=== PATIENT | female | born 1990 | race Caucasian/White ===

== ENCOUNTER → 2020-07-15 11:46 | Outpatient (ROUT) | payer OTHER, SELFPAY ==
[2020-07-15 12:10] LABS: COVID19 -Nasal RAPID Negative (Negative)
== END ==
PROVIDERS: Visit Provider Physician Assistant
DX: Z11.59 Encounter for screening for other viral diseases (principal); E51.9 Thiamine deficiency, unspecified
CPT/HCPCS: 87635

== ENCOUNTER → 2020-07-31 09:31 | Outpatient (CLI) | payer OTHER, SELFPAY ==
[2020-07-31 10:07] LABS: Add Manual Diff / Slide Review NO; Basophils Absolute Auto 100 /uL (0-100); Basophils Percent Auto 0.6 % (0-2); Eosinophils Absolute Auto 400 /uL (0-450); Eosinophils Percent Auto 4.2 % (2-4); Hematocrit 41.7 % (36-46); Hemoglobin 14.3 g/dL (12.0-16.0); Lymphocytes Absolute Auto 3300 /uL (1100-4500); Lymphocytes Percent Auto 34.6 % (25-40); Mean Corpuscular HGB Conc 34.2 % (30-36); Mean Corpuscular Hemoglobin 29.6 PG (26-34); Mean Corpuscular Volume 86.4 fL (80-100); Monocytes Absolute Auto 800 /uL (0-900); Monocytes Percent Auto 8.3 % (3-14); Neutrophils Absolute Auto 4900 /uL (1500-7000); Neutrophils Percent Auto 52.3 % (50-75); Platelet Count 269 X10^3/uL (150-400); Red Blood Cell Count 4.83 X10^6/uL (4.0-5.2); Red Cell Distribution Width 13.2 % (11.6-14.8); White Blood Cell Count 9.4 X10^3/uL (4.5-11.0)
[2020-07-31 10:24] LABS: Alanine Aminotransferase 25 IU/L (<35); Albumin 4.4 g/dL (3.5-5.0); Albumin Globulin Ratio 1.5 (1.0-2.8); Alkaline Phosphatase 49 U/L (38-126); Aspartate Aminotransferase 27 IU/L (14-36); BUN Creatinine Ratio 15.9 (6-22); Bilirubin Total 0.4 mg/dL (0.2-1.3); Blood Urea Nitrogen 11 mg/dL (7-17); Calcium 9.2 mg/dL (8.4-10.2); Carbon Dioxide 27 mmol/L (22-32); Chloride 108 mmol/L (98-107); Cholesterol 243 mg/dL (140-199); Estimated Glomerular Filt Rate > 60.0 mL/min (>60); Glucose 106 mg/dL (70-100); HDL Cholesterol 40 mg/dL (40-60); HEMOLYSIS < 15 (0-50); LDL Cholesterol Calculated 179 mg/dL (<100); Potassium 3.9 mmol/L (3.4-5.1); Sodium 138 mmol/L (137-145); Total Protein 7.4 g/dL (6.3-8.2); Triglycerides 120 mg/dL (35-150)
== END ==
PROVIDERS: PCP Registered Nurse; Referring Provider Registered Nurse; Visit Provider Registered Nurse
DX: Z00.00 Encounter for general adult medical examination without abnormal findings (principal); Z82.49 Family history of ischemic heart disease and other diseases of the circulatory system
CPT/HCPCS: 36415; 80053; 80061; 85025

== ENCOUNTER → 2020-08-07 08:06 | Outpatient (CLI) | payer OTHER, SELFPAY ==
--- NOTE | 2020-08-07 08:08 | DI.US.S_ITS ---
PROCEDURE: US ABDOMEN COMPLETE INDICATIONS: HISTORY OF GALLBLADDER DISEASE TECHNIQUE: Real-time scanning was performed of the abdominal and retroperitoneal organs, with image documentation. COMPARISON: [facility], GYPSY, CT ABDOMEN/PELVIS WITH CONTRAST, 04/01/2009, 13:19. [facility], RG, US ABDOMEN LIMITED, 04/17/2019, 23:42. FINDINGS: Liver: The liver demonstrates mildly enlarged size. The liver demonstrates generalized moderately increased echogenicity. This decreases ultrasound sensitivity for detection of hepatic masses. Gallbladder: No findings of gallstones or sludge are seen. The gallbladder wall is not thickened, measuring 3 mm or less. No specific pericholecystic fluid is seen. The sonographic Fernández sign is negative. Biliary ducts: Intrahepatic bile ducts are non-dilated. Extrahepatic bile duct caliber measures 4 mm. Normal is 6-7 mm or less in diameter, or 10 mm or less post-cholecystectomy. Pancreas: Visualized portions of the pancreas are sonographically normal. Spleen: Spleen is normal in size and homogeneous in echotexture. Kidneys: Kidneys are normal in size and echotexture. Right kidney measures 10.9 cm long; left kidney measures 10.9 cm long. No hydronephrosis or nephrolithiasis. No solid masses. Aorta: Visualized aorta is normal in caliber at less than 3 cm. Iliacs: Proximal common iliac arteries are normal in caliber at less than 2.5 cm. IVC: Intrahepatic inferior vena cava is patent. Miscellaneous: No free abdominal fluid. IMPRESSION: The gallbladder demonstrates a normal sonographic appearance. No biliary dilatation is seen. Mildly enlarged, fatty liver. Dictated by: Familia Newby M.D. on 08/07/2020 at 10:56 Approved by: Familia Newby M.D. on 08/07/2020 at 10:57
== END ==
PROVIDERS: PCP Registered Nurse; Referring Provider Registered Nurse; Visit Provider Registered Nurse
DX: K76.0 Fatty (change of) liver, not elsewhere classified (principal); Z87.19 Personal history of other diseases of the digestive system
CPT/HCPCS: 76700

== ENCOUNTER → 2020-10-09 08:38 | Outpatient (CLI) | payer OTHER, SELFPAY ==
--- NOTE | 2020-10-09 08:39 | DI.US.S_ITS ---
LIMITED ULTRASOUND OF LEFT BREAST AND AXILLA: 10/09/2020 CLINICAL: Palpable left breast lump with pain. No prior exams were available for comparison. Color flow and real-time ultrasound of the left breast axilla were performed. Giles scale images of the real-time examination were reviewed. There is a 2.7 cm x 2.1 cm x 1.6 cm oval mass with a circumscribed and microlobulated margin in the left breast at 2 o'clock posterior depth 6 cm from the nipple. This oval mass is hypoechoic with a well-defined boundary. This correlates as palpated. Color flow imaging demonstrates that there is no vascularity present. No significant abnormalities were seen sonographically in the left axilla. IMPRESSION: PROBABLY BENIGN The 2.7 cm x 2.1 cm x 1.6 cm oval mass in the left breast resembles a fibroadenoma and is probably benign. A follow-up ultrasound in 6 months is recommended to demonstrate stability. Exam findings were conveyed to the patient. Patient is advised to monitor for significant change. This exam was interpreted at Station ID: [id number]. Electronically Signed By: Jose G Gould M.D. [facility] [place]/:10/09/2020 17:06:25 letter sent: Followup Recommended Ultrasound BI-RADS: 3 Probably benign
== END ==
PROVIDERS: PCP Registered Nurse; Referring Provider Registered Nurse; Visit Provider Registered Nurse
DX: N63.21 Unspecified lump in the left breast, upper outer quadrant (principal); N64.4 Mastodynia
CPT/HCPCS: 76642

== ENCOUNTER → 2020-10-21 14:15 | Outpatient (CLI) | payer OTHER, SELFPAY ==
[2020-10-21 16:22] LABS: Add Manual Diff / Slide Review NO; Basophils Absolute Auto 0 /uL (0-100); Basophils Percent Auto 0.4 % (0-2); Eosinophils Absolute Auto 400 /uL (0-450); Eosinophils Percent Auto 3.9 % (2-4); Hematocrit 39.7 % (36-46); Hemoglobin 13.7 g/dL (12.0-16.0); Lymphocytes Absolute Auto 3000 /uL (1100-4500); Lymphocytes Percent Auto 32.3 % (25-40); Mean Corpuscular HGB Conc 34.4 % (30-36); Mean Corpuscular Hemoglobin 29.7 PG (26-34); Mean Corpuscular Volume 86.3 fL (80-100); Monocytes Absolute Auto 800 /uL (0-900); Monocytes Percent Auto 8.3 % (3-14); Neutrophils Absolute Auto 5100 /uL (1500-7000); Neutrophils Percent Auto 55.1 % (50-75); Platelet Count 264 X10^3/uL (150-400); Red Cell Distribution Width 13.2 % (11.6-14.8); White Blood Cell Count 9.3 X10^3/uL (4.5-11.0)
[2020-10-21 16:54] LABS: Alanine Aminotransferase 64 IU/L (<35); Albumin 4.5 g/dL (3.5-5.0); Albumin Globulin Ratio 1.4 (1.0-2.8); Alkaline Phosphatase 50 U/L (38-126); Aspartate Aminotransferase 53 IU/L (14-36); BUN Creatinine Ratio 13.8 (6-22); Bilirubin Total 0.7 mg/dL (0.2-1.3); Bilirubin Unconjugated 0.6 mg/dL (0.0-1.1); Blood Urea Nitrogen 12 mg/dL (7-17); Calcium 9.3 mg/dL (8.4-10.2); Carbon Dioxide 29 mmol/L (22-32); Chloride 104 mmol/L (98-107); Estimated Glomerular Filt Rate > 60.0 mL/min (>60); Globulin 3.2 g/dL (1.7-4.1); Glucose 82 mg/dL (70-100); HEMOLYSIS < 15 (0-50); Lipase 133 U/L (23-300); Potassium 4.4 mmol/L (3.4-5.1); Sodium 138 mmol/L (137-145); Total Protein 7.7 g/dL (6.3-8.2)
[2020-10-21 18:04] LABS: TSH w/ Reflex to FT4 2.25 uIU/mL (0.47-4.68)
== END ==
PROVIDERS: PCP Registered Nurse; Referring Provider Nurse Practitioner Family; Visit Provider Nurse Practitioner Family
DX: R10.11 Right upper quadrant pain (principal)
CPT/HCPCS: 36415; 80053; 80076; 83690; 84443; 85025

== ENCOUNTER → 2020-10-23 07:11 | Outpatient (CLI) | payer OTHER, SELFPAY ==
--- NOTE | 2020-10-23 07:12 | DI.US.S_ITS ---
PROCEDURE: US ABDOMEN LIMITED INDICATIONS: RUQ PAIN TECHNIQUE: Real-time focused scanning was performed of the abdomen, with image documentation. COMPARISON: [facility], RG, US ABDOMEN LIMITED, 04/17/2019, 23:42. [facility], US, US ABDOMEN COMPLETE, 08/07/2020, 8:29. FINDINGS: The liver demonstrates prominent size. The liver demonstrates generalized mildly increased echogenicity. This decreases ultrasound sensitivity for detection of hepatic masses. No findings of gallstones or sludge are seen. The gallbladder wall is not thickened, measuring 3 mm or less. No specific pericholecystic fluid is seen. The sonographic Fernández sign is negative. There is no biliary dilatation, the common bile duct measures 5 mm. No significant pancreatic abnormality is seen on these images. IMPRESSION: The gallbladder demonstrates a normal sonographic appearance. No biliary dilatation is seen. Mild fatty liver infiltration seen. Dictated by: Familia Newby M.D. on 10/23/2020 at 9:14 Approved by: Familia Newby M.D. on 10/23/2020 at 9:15
== END ==
PROVIDERS: PCP Registered Nurse; Referring Provider Nurse Practitioner Family; Visit Provider Nurse Practitioner Family
DX: R10.11 Right upper quadrant pain (principal); K76.0 Fatty (change of) liver, not elsewhere classified
CPT/HCPCS: 76705

== ENCOUNTER 2020-11-16 06:59 | Emergency (ER) | payer OTHER, SELFPAY ==
[2020-11-16 07:07] VITALS: BP 134/64; PULSE 72; RESP 14; TEMP 36.3; O2SAT 100; BMI 30.7
--- NOTE | 2020-11-16 07:22 | DI.US.S_ITS ---
PROCEDURE: US ABDOMEN LIMITED INDICATIONS: RIGHT UPPER QUADRANT PAIN TECHNIQUE: Real-time focused scanning was performed of the abdomen, with image documentation. COMPARISON: [facility], US, US ABDOMEN LIMITED, 10/23/2020, 7:23. [facility], US, US ABDOMEN COMPLETE, 08/07/2020, 8:29. FINDINGS: The liver is normal in echotexture, and measures up to 20 cm craniocaudad. The gallbladder is normal in wall thickness, and shows no evidence of stones or inflammation. The common duct is normal in caliber at 5.7 mm. The pancreas is normal where well seen. IMPRESSION: Hepatic craniocaudad length is 20 cm, otherwise the limited right upper quadrant ultrasound appears normal. No sign of cholecystitis or biliary distension. Dictated by: Woody Kam M.D. on 11/16/2020 at 8:30 Approved by: Woody Kam M.D. on 11/16/2020 at 8:32
[2020-11-16] MEDS: ONDANSETRON 4 MG/2 ML INJ IV (07:27)
[2020-11-16] MEDS: KETOROLAC 60 MG/2 ML VIAL 30 MG IV (07:27)
[2020-11-16] MEDS: PANTOPRAZOLE 40 MG VIAL IV (07:27)
[2020-11-16] MEDS: SODIUM CHLORIDE 0.9% 1,000 ML 1000 ML IV (07:28)
--- NOTE | 2020-11-16 07:31 | ED.CHESTPAIN ---
HPI - Chest Pain General Chief Complaint: Chest Pain Stated Complaint: pain in mid to upper chest, nausea Time Seen by Provider: 11/16/20 07:07 Source: patient Mode of arrival: Ambulatory Limitations: no limitations History of Present Illness HPI narrative: Patient is a 29-year-old female with no past medical history presenting today with vomiting chest burning and some abdominal discomfort. She says that she threw up twice last night now has burning and history in her chest, and some mild abdominal pain. She says the pain comes and goes and is sharp and stabbing when it is present. She has previously had issues with her gallbladder but has not yet had surgery. She denies any fever chills no shortness of breath. Still feeling slightly nauseous. She denies any diarrhea. Related Data Previous Rx's Medication Instructions Recorded promethazine 25 mg PO Q6H PRN #10 tab 11/16/20 Allergies Allergy/AdvReac Type Severity Reaction Status Date / Time No Known Drug Allergies Allergy Verified 10/21/20 13:32 Review of Systems Review of Systems Narrative: GENERAL: Denies chills, fatigue, malaise, fever, sweats, travel HEENT: Denies sinus pain, ear pain, sore throat, difficulty swallowing, neck pain RESPIRATORY: Denies dyspnea, cough, wheezing, hemoptysis, sputum. CARDIOVASCULAR: Denies chest pain, palpitations, orthopnea, edema GASTROINTESTINAL: See HPI : Denies dysuria, frequency, incontinence, hematuria, urinary retention, flank pain. MUSCULOSKELETAL: Denies weakness, joint pain, or bony pain SKIN: No rash, no erythema, no pruritus NEUROLOGIC: Denies weakness, dizziness, headache, numbness, change in speech, confusion PSYCHIATRIC: No concerning psychosocial issues. 12 point review of systems is negative except for those stated above and HPI Patient History Medical History Eczema (~2011) No significant medical problems Right upper quadrant abdominal pain (09/2020) Surgical History Anesthesia History of tonsillectomy Family History Father History of quadruple bypass History of heart disease Hyperlipidemia Grandmother Diabetes mellitus Grandfather History of heart disease Social History Smoking Status: Former smoker Smoking Status: Former smoker alcohol intake frequency: 0-2 drinks per day Substance Use Type: marijuana Exam Initial Vital Signs Initial Vital Signs: Vital Signs Temperature 97.4 F L 11/16/20 07:07 Pulse Rate 72 11/16/20 07:07 Respiratory Rate 14 11/16/20 07:07 Blood Pressure 134/64 11/16/20 07:07 Pulse Oximetry 100 11/16/20 07:07 GENERAL: Well-appearing, well-nourished and in no acute distress. HEENT: Head atraumatic,EOMI, pupils reactive, face symmetric, moist mucous membranes CARDIOVASCULAR: Regular rate and rhythm without murmurs, rubs or gallops. RESPIRATORY: Breath sounds equal bilaterally, no wheezes rales or rhonchi. ABDOMEN: Soft, mild right upper quadrant pain no guarding or rebound EXTREMITIES: Normal range of motion, no clubbing or edema. Neurovascularly intact NEUROLOGICAL: Alert and oriented x4.Normal gait and speech. Cranial nerves II through XII grossly intact. SKIN: Warm, dry, no laceration, no petechiae, no rashes or lesions. Course Orders Ordered: ED Orders 11/16/20 07:10 Complete Blood Count AUTO DIFF Stat Comprehensive Metabolic Panel Stat Lipase Stat Troponin & CK Cardiac Panel Stat 11/16/20 07:22 US abdomen limited Stat 11/16/20 07:43 XR chest 1V Stat Discontinued Medications Sodium Chloride (Normal Saline 0.9%) 1,000 mls @ 1,000 mls/hr IV CONT DARSHANA Last Infusion: 11/16/20 08:45 Dose: 0 mls/hr Documented by: Admin: 11/16/20 07:28 Dose: 1,000 mls/hr Documented by: LESLIE Ketorolac Tromethamine (Ketorolac 60 Mg/2 Ml Vial) 30 mg IV NOW ONE Stop: 11/16/20 07:23 Last Admin: 11/16/20 07:27 Dose: 30 mg Documented by: LESLIE Ondansetron HCl (Ondansetron 4 Mg/2 Ml Inj) 4 mg IV NOW ONE Stop: 11/16/20 07:23 Last Admin: 11/16/20 07:27 Dose: 4 mg Documented by: LESLIE Pantoprazole Sodium (Pantoprazole 40 Mg Vial) 40 mg IV NOW ONE Stop: 11/16/20 07:23 Last Admin: 11/16/20 07:27 Dose: 40 mg Documented by: LESLIE Vital Signs Vital signs: Vital Signs - 8 hr 11/16/20 07:07 11/16/20 08:30 Temperature 97.4 F L Pulse Rate 72 69 Respiratory Rate 14 16 Blood Pressure 134/64 103/58 L Pulse Oximetry 100 97 MDM - Chest Pain Lab Data Attestation: I reviewed the patient's lab results. Result diagrams: 11/16/20 07:10 11/16/20 07:10 Labs: Lab Results 11/16/20 11/16/20 11/16/20 Range/Units 07:10 07:10 07:10 WBC 9.3 (4.5-11.0) X10^3/uL RBC 4.81 (4.0-5.2) X10^6/uL Hgb 14.5 (12.0-16.0) g/dL Hct 42.4 (36-46) % MCV 88.0 (80-100) fL MCH 30.1 (26-34) PG MCHC 34.2 (30-36) % RDW 12.8 (11.6-14.8) % Plt Count 269 (150-400) X10^3/uL Neut % (Auto) 42.6 L (50-75) % Lymph % (Auto) 42.0 H (25-40) % [place] % (Auto) 8.0 (3-14) % Eos % (Auto) 6.7 H (2-4) % Baso % (Auto) 0.7 (0-2) % Neut # (Auto) 4000 (7783-2910) /uL Lymph # (Auto) 3900 (1731-2179) /uL [place] # (Auto) 800 (0-900) /uL Eos # (Auto) 600 H (0-450) /uL Baso # (Auto) 100 (0-100) /uL Sodium 139 (137-145) mmol/L Potassium 4.7 (3.4-5.1) mmol/L Chloride 105 (98-107) mmol/L Carbon Dioxide 22 (22-32) mmol/L BUN 14 (7-17) mg/dL Creatinine 0.74 (0.52-1.04) mg/dL Estimated GFR > 60.0 (>60) mL/min BUN/Creatinine Ratio 18.9 (6-22) Glucose 93 (70-100) mg/dL Calcium 9.5 (8.4-10.2) mg/dL Total Bilirubin 1.0 (0.2-1.3) mg/dL AST 43 H (14-36) IU/L ALT 18 (<35) IU/L Alkaline Phosphatase 48 (38-126) U/L Total Creatine Kinase 77 (30-135) U/L CK-MB (CK-2) TNP CK-MB (CK-2) Rel Index TNP Troponin I 0.018 (0.01-0.034) ng/mL Total Protein 8.0 (6.3-8.2) g/dL Albumin 4.7 (3.5-5.0) g/dL Globulin 3.3 (1.7-4.1) g/dL Albumin/Globulin Ratio 1.4 (1.0-2.8) Lipase 179 (23-300) U/L Point of Care Testing Test Results Negative Urine Dip Bedside Urine Glucose Negative Bedside Urine Bilirubin - Negative Bedside Urine Ketone - Negative Urine Specific [place] 1.03 Bedside Urine Occult Blood - Negative Bedside Urine pH 6 Bedside Urine Protein - Negative Bedside Urine Urobilinogen - Negative Bedside Urine Nitrite - Negative Bedside Urine Leukocytes - Negative Esterase Imaging Data Chest x-ray: Radiologist's Impression: PROCEDURE: XR CHEST 1V INDICATIONS: chest pain TECHNIQUE: One view of the chest was acquired. COMPARISON: None. FINDINGS: Surgical changes and devices: None. Lungs and pleura: Lungs are clear. No pleural effusions or pneumothorax. Mediastinum: Mediastinal contours appear normal. Heart size is normal. Bones and chest wall: No suspicious bony lesions. Overlying soft tissues appear unremarkable. IMPRESSION: 1. No acute cardiopulmonary disease. Dictated by: Johnnie Jacobsen M.D. on 11/16/2020 at 8:08 US - abdomen: Radiologist's Impression: PROCEDURE: US ABDOMEN LIMITED INDICATIONS: RIGHT UPPER QUADRANT PAIN TECHNIQUE: Real-time focused scanning was performed of the abdomen, with image documentation. COMPARISON: Located [facility], , US ABDOMEN LIMITED, 10/23/2020, 7:23. Located [facility], , US ABDOMEN COMPLETE, 08/07/2020, 8:29. FINDINGS: The liver is normal in echotexture, and measures up to 20 cm craniocaudad. The gallbladder is normal in wall thickness, and shows no evidence of stones or inflammation. The common duct is normal in caliber at 5.7 mm. The pancreas is normal where well seen. IMPRESSION: Hepatic craniocaudad length is 20 cm, otherwise the limited right upper quadrant ultrasound appears normal. No sign of cholecystitis or biliary distension. Dictated by: Woody Kam M.D. on 11/16/2020 at 8:30 Approved by: Woody Kam M.D. on 11/16/2020 at 8:32 ECG Data Attestation: I personally reviewed and interpreted this ECG as follows: Prior ECG tracings: not available for review Interpretation: EKG 1. Normal sinus rhythm rate 48 interval 154 QRS [address] changes full to EKG 2. Sinus rhythm rate 50 p.r. interval [address] changes similar previous EKG MDM Narrative Medical decision making narrative: Patient is noted to be bradycardic as low as 43 the. She is given Zofran but EKG does not show significant QT prolongation however for will give her Phenergan. Ultrasound blood work her overall reassuring. No sign of acute cholecystitis. Discharge Plan Departure Patient Disposition: Home Clinical Impression: Gastroenteritis Instructions: DI for Viral Gastroenteritis -- Adult Activity Restrictions/Additional Instructions: 1) You have been diagnosed with gastroenteritis 2) What to do: Your blood work and ultrasound are overall reassuring no problem with gallbladder at this time. Drink frequent but small amounts of fluids. I recommend Gatorade or a Gatorade-like product, as it has small amounts of sugar and salts that improve fluid retention. 3) Take medications as directed--> SENT TO [facility] IN [place] Phenergan 25 mg every 6 hours if needed for nausea or vomiting this can cause drowsiness 4) Follow up with your primary care provider in 2-3 days 5) Return to ER if you should have any new or worsening symptoms such as, increasing pain, fever unable to hold down fluids despite use of anti-nausea medications and the small volume oral rehydration strategy. Prescriptions: New promethazine 25 mg tablet 25 mg PO Q6H PRN (Reason: nausea and vomiting) Qty: 10 RF: 0 Referrals: Tong Strong ARNP [Primary Care Provider] -
--- NOTE | 2020-11-16 07:43 | DI.RAD.S_ITS ---
PROCEDURE: XR CHEST 1V INDICATIONS: chest pain TECHNIQUE: One view of the chest was acquired. COMPARISON: None. FINDINGS: Surgical changes and devices: None. Lungs and pleura: Lungs are clear. No pleural effusions or pneumothorax. Mediastinum: Mediastinal contours appear normal. Heart size is normal. Bones and chest wall: No suspicious bony lesions. Overlying soft tissues appear unremarkable. IMPRESSION: 1. No acute cardiopulmonary disease. Dictated by: Johnnie Jacobsen M.D. on 11/16/2020 at 8:08 Approved by: Johnnie Jacobsen M.D. on 11/16/2020 at 8:11
[2020-11-16 07:49] LABS: Creatine Kinase 77 U/L (30-135)
[2020-11-16 07:51] LABS: Alanine Aminotransferase 18 IU/L (<35); Albumin 4.7 g/dL (3.5-5.0); Albumin Globulin Ratio 1.4 (1.0-2.8); Alkaline Phosphatase 48 U/L (38-126); Aspartate Aminotransferase 43 IU/L (14-36); BUN Creatinine Ratio 18.9 (6-22); Blood Urea Nitrogen 14 mg/dL (7-17); Calcium 9.5 mg/dL (8.4-10.2); Carbon Dioxide 22 mmol/L (22-32); Chloride 105 mmol/L (98-107); Estimated Glomerular Filt Rate > 60.0 mL/min (>60); Globulin 3.3 g/dL (1.7-4.1); Glucose 93 mg/dL (70-100); Lipase 179 U/L (23-300); Potassium 4.7 mmol/L (3.4-5.1); Sodium 139 mmol/L (137-145)
[2020-11-16 08:02] LABS: Troponin I 0.018 ng/mL (0.01-0.034)
[2020-11-16 08:14] LABS: Eosinophils Absolute Auto 600 /uL (0-450); Lymphocytes Absolute Auto 3900 /uL (1100-4500)
[2020-11-16 08:18] LABS: Add Manual Diff / Slide Review NO; Basophils Absolute Auto 100 /uL (0-100); Basophils Percent Auto 0.7 % (0-2); Eosinophils Percent Auto 6.7 % (2-4); Hematocrit 42.4 % (36-46); Hemoglobin 14.5 g/dL (12.0-16.0); Mean Corpuscular HGB Conc 34.2 % (30-36); Mean Corpuscular Hemoglobin 30.1 PG (26-34); Monocytes Absolute Auto 800 /uL (0-900); Neutrophils Absolute Auto 4000 /uL (1500-7000); Neutrophils Percent Auto 42.6 % (50-75); Platelet Count 269 X10^3/uL (150-400); Red Blood Cell Count 4.81 X10^6/uL (4.0-5.2); Red Cell Distribution Width 12.8 % (11.6-14.8); White Blood Cell Count 9.3 X10^3/uL (4.5-11.0)
[2020-11-16 08:30] VITALS: BP 103/58; PULSE 69; RESP 16; O2SAT 97
== END 2020-11-16 09:12 | disposition home or self-care (01) ==
PROVIDERS: Emergency Provider Emergency Medicine; PCP Registered Nurse
DX: K52.9 Noninfective gastroenteritis and colitis, unspecified (principal); R10.11 Right upper quadrant pain; R11.2 Nausea with vomiting, unspecified; R07.9 Chest pain, unspecified
CPT/HCPCS: 36415; 71045; 76705; 80053; 81003; 81025; 82550; 83690; 84484; 85025; 93005; 93010; 96361; 96374; 96375; 99284; C9113; J1885; J2405

== ENCOUNTER → 2020-12-22 15:40 | Outpatient (CLI) | payer OTHER, SELFPAY ==
[2020-12-22 17:16] LABS: COVID19 -Nasal RAPID Negative (Negative)
== END ==
PROVIDERS: PCP Registered Nurse; Visit Provider Physician Assistant
DX: R09.81 Nasal congestion (principal); Z20.822 Contact with and (suspected) exposure to COVID-19
CPT/HCPCS: 87635

== ENCOUNTER → 2021-03-12 08:14 | Outpatient (CLI) | payer OTHER, SELFPAY ==
--- NOTE | 2021-03-12 08:15 | DI.US.S_ITS ---
PROCEDURE: US PELVIC COMPLETE INDICATIONS: INFERTILITY TECHNIQUE: Real-time scanning was performed of the pelvic organs, with image documentation. Additional endovaginal scanning was necessary due to incomplete visualization of the adnexal and endometrial structures by transabdominal scanning. COMPARISON: None. FINDINGS: Uterus: The uterus measures 6.6 x 5.0 x 4.1 centimeters. The uterus is anteverted. Endometrial thickness is 11.7 millimeters. Multiple simple anechoic myometrial cysts are seen. The uterus may have a septate morphology, however this is not well defined with this ultrasound. Ovaries: The left ovary has a normal size and appearance measuring 2.9 x 1.7 x 1.7 centimeters with normal appearing follicles. The right ovary has a normal size measuring 4.0 x 2.5 x 2.8 centimeters The right ovary has an isoechoic focus with ring-like peripheral enhancement measuring 1.9 x 1.8 x 1.2 centimeters likely a corpus luteum cyst. Other: No pathologic free abdominal or pelvic fluid. IMPRESSION: 1. Simple anechoic myometrial cysts are seen or this could be fluid within the endometrial canal of a septate uterus. This is not well defined with this ultrasound however. 2. Please correlate with test. Small endometrial cysts could potentially be early gestational sacs. 3. Probable corpus luteum of the right ovary. Dictated by: Ulisses Marks M.D. on 03/12/2021 at 11:01 Approved by: Ulisses Marks M.D. on 03/12/2021 at 11:10
== END ==
PROVIDERS: PCP Registered Nurse; Referring Provider Obstetrics & Gynecology; Visit Provider Obstetrics & Gynecology
DX: N97.9 Female infertility, unspecified (principal); N85.8 Other specified noninflammatory disorders of uterus
CPT/HCPCS: 76830; 76856

== ENCOUNTER → 2021-04-09 08:03 | Outpatient (CLI) | payer OTHER, SELFPAY ==
--- NOTE | 2021-04-09 08:03 | DI.US.S_ITS ---
PROCEDURE: US OB <= 14 WEEKS FETUS INDICATIONS: DATES OUTSIDE/PRIOR DATING DATA: Last menstrual period (LMP): 02/08/2021 LMP-based estimated date of delivery (JARED): 11/06/2021 First dating scan (date and location): 04/09/2021 at [facility] Estimated date of delivery (JARED) from first dating scan: 11/29/2021 TECHNIQUE: Real-time scanning was performed of the fetus and maternal pelvic organs, with image documentation. Endovaginal scanning was also performed to better visualize the fetus and maternal ovaries. COMPARISON: [facility], US, US PELVIC COMPLETE, 03/12/2021, 8:37. FINDINGS: Embryo: An intrauterine gestational sac is seen with yolk sac and pole. The crown-rump length is 0.7 cm, compatible with a gestational age of 6 weeks 4 days. Heart rate: 125 beats per minute Measurement variability in dating: +/- 4 weeks by LMP, +/- 7 days by mean sac diameter (use before 6 weeks gestation if crown-rump length not able to be measured), +/- 5 days by crown-rump length (up to 8 weeks 6 days gestation), +/- 7 days by crown-rump length (up to 13 weeks 6 days gestation). Maternal organs: A right ovarian corpus luteum cyst is seen. The left ovary appears normal. IMPRESSION: Single live intrauterine with estimated gestational age of 6 weeks 4 days. Dictated by: Antwon Mcknight M.D. on 04/09/2021 at 9:52 Approved by: Antwon Mcknight M.D. on 04/09/2021 at 9:54
== END ==
PROVIDERS: PCP Registered Nurse; Referring Provider Obstetrics & Gynecology; Visit Provider Obstetrics & Gynecology
DX: Z34.81 Encounter for supervision of other normal pregnancy, first trimester (principal); Z3A.01 Less than 8 weeks gestation of pregnancy
CPT/HCPCS: 76801; 76817

== ENCOUNTER → 2021-05-06 12:44 | Outpatient (CLI) | payer OTHER, SELFPAY ==
[2021-05-06 13:11] LABS: Add Manual Diff / Slide Review NO; Basophils Absolute Auto 100 /uL (0-100); Basophils Percent Auto 0.6 % (0-2); Eosinophils Absolute Auto 400 /uL (0-450); Eosinophils Percent Auto 2.8 % (2-4); Hematocrit 38.1 % (36-46); Lymphocytes Absolute Auto 3200 /uL (1100-4500); Lymphocytes Percent Auto 22.3 % (25-40); Mean Corpuscular Hemoglobin 30.4 PG (26-34); Mean Corpuscular Volume 89.3 fL (80-100); Monocytes Absolute Auto 1000 /uL (0-900); Neutrophils Absolute Auto 9500 /uL (1500-7000); Neutrophils Percent Auto 67.3 % (50-75); Platelet Count 242 X10^3/uL (150-400); Red Blood Cell Count 4.26 X10^6/uL (4.0-5.2); Red Cell Distribution Width 13.3 % (11.6-14.8); White Blood Cell Count 14.2 X10^3/uL (4.5-11.0)
[2021-05-06 15:04] LABS: Hepatitis B Surface Antigen NEGATIVE s/c (NEGATIVE); Rubella Antibody IgG 12.3 IU/mL (>15)
[2021-05-06 15:19] LABS: Hep C Virus Ab w/Reflex Quant NEGATIVE s/c (NEGATIVE)
[2021-05-06 15:20] LABS: HIV 1 & 2 Ab/Ag 4th Gen Combo NEGATIVE (NEGATIVE)
[2021-05-07 07:54] LABS: RPR Screen Non Reactive (Non Reactive)
[2021-05-07 08:13] LABS: Varicella IgG Antibody 491 index (Immune >165)
== END ==
PROVIDERS: Specialist; PCP Registered Nurse; Referring Provider Obstetrics & Gynecology; Visit Provider Obstetrics & Gynecology
DX: Z34.81 Encounter for supervision of other normal pregnancy, first trimester (principal); Z00.00 Encounter for general adult medical examination without abnormal findings
CPT/HCPCS: 36415; 80055; 86787; 86803; 86850; 86900; 86901; 87086; 87389

== ENCOUNTER → 2021-05-21 17:33 | Outpatient (CLI) | payer OTHER, SELFPAY ==
[2021-05-21 19:55] LABS: Urine N gonorrhoeae NOT DETECTED
[2021-05-21 19:59] LABS: Urine Chlamydia NOT DETECTED
== END ==
PROVIDERS: PCP Registered Nurse; Visit Provider Obstetrics & Gynecology
DX: Z34.82 Encounter for supervision of other normal pregnancy, second trimester (principal); Z11.3 Encounter for screening for infections with a predominantly sexual mode of transmission
CPT/HCPCS: 87491; 87591

== ENCOUNTER → 2021-06-18 15:29 | Outpatient (CLI) | payer OTHER, SELFPAY ==
[2021-06-21 21:17] LABS: AFP, Serum 34.8 ng/mL (.); Calc Gestational Age Ultrasound (.); Estriol, Free 1.29 ng/mL (.); Inhibin A, Dimeric 138.74 pg/mL (.); Maternal Ethnicity Caucasian (.); Maternal Weight 219 lbs (.); Number of Fetuses No (.); OSBR Risk 1 IN 6499 (.); Results Report (.); Test Results *Screen Negative* (.); hCG, MoM 0.95 (.); hCG, Serum 27236 mIU/mL (.)
== END ==
PROVIDERS: PCP Registered Nurse; Referring Provider Obstetrics & Gynecology; Visit Provider Obstetrics & Gynecology
DX: Z34.82 Encounter for supervision of other normal pregnancy, second trimester (principal); Z3A.16 16 weeks gestation of pregnancy
CPT/HCPCS: 36415; 82105; 82677; 84702; 86336

== ENCOUNTER → 2021-07-13 16:07 | Outpatient (CLI) | payer OTHER, MEDICAID, SELFPAY ==
--- NOTE | 2021-07-13 16:15 | DI.US.S_ITS ---
PROCEDURE: US OB >= 14 WEEKS FETUS INDICATIONS: 20 WEEK ANATOMY OUTSIDE/PRIOR DATING DATA: Last menstrual period (LMP): 02/08/2021 . LMP-based estimated date of delivery (JARED): 11/15/2021 . First dating scan (date and location): 04/09/2021 . Estimated date of delivery (JARED) from first dating scan: 11/29/2021 . TECHNIQUE: Real-time scanning was performed of the fetus, with image documentation and biometric measurements. COMPARISON: None. FINDINGS: General: A single living intrauterine gestation is present. Presentation: Variable. Placenta: Placental position is anterior , without previa. Amniotic fluid index: 16.7 cm, normal range is 5-24 cm. heart rate: 149 beats per minute. Maternal cervical canal: 3.8 cm long. Normal lower limit is 2.5 cm. biometrics: Biparietal diameter: 4.8 cm 20 weeks 4 days Head circumference: 17.9 cm 20 weeks 3 days Abdominal circumference: 15.7 cm 20 weeks 6 days Femur length: 3.2 cm 20 weeks 0 days Estimated gestational age from initial scan: 20 weeks 1 day Composite gestational age from present scan: 20 weeks 3 days Estimated weight and percentile: 355 g, 64th percentile Measurement variability for biometric dating: +/- 7 days from 14 weeks to 15 weeks 6 days gestation, +/- 10 days from 16 weeks to 21 weeks 6 days gestation, +/- 2 weeks from 22 weeks to 27 weeks 6 days gestation, +/- 3 weeks for 28 weeks gestation or later. weight reference: 4500 g or EFW >90/95% is considered macrosomia or large for gestational age. EFW <10% is small for gestational age. EFW 5% or less is considered intra-uterine growth restriction. Anatomic survey: Neuro: Ventricles are non-dilated at less than 10 mm. Cisterna magna is normal at 3-11 mm. Cerebellum is normal in size and morphology. Nuchal skin fold: Not well seen. Face: Nose and lips, facial profile are not well seen. Spine: No evidence for spina bifida. Heart: 4-chambered heart and ventricular outflow tracts are not well seen. Diaphragm: Diaphragm is not well seen. Stomach: Left-sided stomach is present. Kidneys: Kidneys are not well seen. Cord: 3-vessel cord has orthotopic insertion. Bladder: Normal in size. Extremities: All 4 extremities identified. Right foot is not well seen. IMPRESSION: 1. Single live intrauterine . 2. Multiple areas of anatomy are not well seen, as above. Recommend short interval imaging follow-up for continued evaluation. Dictated by: Danii Rea M.D. on 07/15/2021 at 14:27 Approved by: Danii Rea M.D. on 07/15/2021 at 14:30
== END ==
PROVIDERS: PCP Registered Nurse; Referring Provider Obstetrics & Gynecology; Visit Provider Obstetrics & Gynecology
DX: Z34.82 Encounter for supervision of other normal pregnancy, second trimester (principal); Z3A.20 20 weeks gestation of pregnancy
CPT/HCPCS: 76811

== ENCOUNTER → 2021-07-26 07:08 | Outpatient (CLI) | payer OTHER, MEDICAID, SELFPAY ==
--- NOTE | 2021-07-26 07:10 | DI.US.S_ITS ---
PROCEDURE: US OB FOLLOW UP INDICATIONS: ANATOMY FOLLOW-UP OUTSIDE/PRIOR DATING DATA: Last menstrual period (LMP): 02/08/2021. LMP-based estimated date of delivery (JARED): 10/27/2021. First dating scan (date and location): 04/09/2021. Estimated date of delivery (JARED) from first dating scan: 11/29/2021. The calculations are made using the ultrasound JARED of 11/29/2021. TECHNIQUE: Real-time scanning was performed of the fetus, with image documentation. Endovaginal scanning: Not performed. COMPARISON: [facility], OB >= 14 WEEKS FETUS, 07/13/2021, 16:25. FINDINGS: A single living intrauterine gestation is present. Presentation: Vertex. Placenta: Placental position is anterior, without previa. Amniotic fluid index: 12.7 cm, normal range is 5-24 cm. Single deepest vertical pocket is 5.3 cm. heart rate: 139 beats per minute. Maternal cervical canal: 3.8 cm long. Normal lower limit is 2.5 cm. Estimated gestational age from initial scan: 22 weeks 0 days. The profile, nose and lips, face, RVOT, feet, kidneys, diaphragm are normal in appearance. IMPRESSION: 1. Hernandez living intrauterine at 22 weeks 0 days based on prior ultrasound. 2. Normal placenta and amniotic fluid. 3. profile, nose and lips, face, RVOT, feet, kidneys, diaphragm are normal in appearance. This completes the anatomic survey. Dictated by: Jose G Gould M.D. on 07/26/2021 at 8:09 Approved by: Jose G Gould M.D. on 07/26/2021 at 8:13
== END ==
PROVIDERS: PCP Registered Nurse; Referring Provider Obstetrics & Gynecology; Visit Provider Obstetrics & Gynecology
DX: Z36.89 Encounter for other specified antenatal screening (principal); Z3A.22 22 weeks gestation of pregnancy
CPT/HCPCS: 76816

== ENCOUNTER → 2021-08-14 10:11 | Outpatient (CLI) | payer OTHER, MEDICAID, SELFPAY ==
[2021-08-14 12:39] LABS: Hematocrit 38.6 % (36-46); Hemoglobin 13.2 g/dL (12.0-16.0)
[2021-08-14 12:55] LABS: GTT (PREG) 1 Hour PP 50gm Dose 135 mg/dL (76-139)
== END ==
PROVIDERS: PCP Registered Nurse; Referring Provider Obstetrics & Gynecology; Visit Provider Obstetrics & Gynecology
DX: Z34.82 Encounter for supervision of other normal pregnancy, second trimester (principal); Z3A.26 26 weeks gestation of pregnancy
CPT/HCPCS: 36415; 82950; 85014; 85018

== ENCOUNTER 2021-09-14 19:39 | Outpatient (CLI) | payer OTHER, MEDICAID, SELFPAY ==
--- NOTE | 2021-09-15 07:59 | PM.OBTRLD ---
Visit Information Visit Information Date of evaluation: 09/14/21 Primary OB Provider: Clair Ga On-call OB Provider: Cecilia Pruitt Reason for Evaluation: Yes non-stress test non-stress test reason: decreased movement Vital Signs Vital Signs: Blood pressure 130/75, pulse 108, temperature 36.4? [facility] Medical History (Updated 09/15/21 @ 08:00 by Cecilia Pruitt MD) Chronic eczema (~2010) Eczema (~2011) Fatty liver (~07/2020) GERD (gastroesophageal reflux disease) (~2019) Hand fracture, right (~2015) Infertility associated with anovulation No significant medical problems URI (upper respiratory infection) Surgical History (Updated 04/02/21 @ 14:20 by Sandi Michaels, RN) Anesthesia History of tonsillectomy [place] teeth extracted (~2009) Family History (Updated 04/02/21 @ 14:31 by Sandi Michaels, RN) Father History of quadruple bypass History of heart disease Hyperlipidemia Grandmother Diabetes mellitus Grandfather History of heart disease History of hernia surgery S/P coronary artery stent placement Mother No problems noted. Grandfather Colon cancer Grandmother S/P coronary artery stent placement Social History marital status: (Engaged. Will be 04/17/21.) number of children: 0 household members: spouse lives independently: Yes caregiver/support person: No housing: apartment pets and animals: Yes (2 cats: aware & safe. ) education level: high school occupational status: employed (Dental office) current occupational exposures/hazards: No special teodoro needs: No seatbelt use: always working smoke detector in home: Yes fire extinguisher in home: No carbon monox detector in home: Yes firearms in home: No do you feel safe at home: Yes Smoking Status: Former smoker Tobacco: How many years used: 9 (1/2 ppd.) quit status: quit date established (August 28, 2020) second hand exposure: No alcohol intake: former (Pre-: twice a week, a couple glasses. ) substance use type: marijuana (Quit w positive test. ) during the past year weight has: remained stable well-balanced diet: daily or most days daily servings fruits/ve or more times/day caffeine: Yes (1 cup a day, not every day. Occasional soda. ) Type(s) of exercise: walking frequency: 1-2 times per week Evaluation Evaluation Baseline heart rate: 145 Variability: Moderate (11-25) monitor accelerations: Present Monitor Decelerations: Absent Contraction Frequency (minutes): 0 Category of Tracing: Reactive Diagnosis, Plan/Disposition Final Diagnosis (1) 29 weeks gestation of : Status: Acute (2) Decreased movement: Status: Acute Plan/Disposition Plan: Reassuring nonstress test with several movements heard in 20 minutes. Patient reassured routine precautions reviewed. OB Disposition: home
== END 2021-09-14 20:09 | disposition home or self-care (01) ==
LOC: OB 09-15 11:58
PROVIDERS: PCP Registered Nurse; Referring Provider Specialist; Visit Provider Specialist
DX: O36.8130 Decreased fetal movements, third trimester, not applicable or unspecified (principal); Z3A.29 29 weeks gestation of pregnancy
CPT/HCPCS: 59025; G0378; G0379

== ENCOUNTER 2021-10-21 16:54 | Outpatient (CLI) | payer OTHER, MEDICAID, SELFPAY | END 2021-10-21 17:35 | disposition home or self-care (01) | LOC: OB 10-22 09:39 | PROVIDERS: PCP Registered Nurse; Referring Provider Obstetrics & Gynecology; Visit Provider Obstetrics & Gynecology | DX: O36.8330 Maternal care for abnormalities of the fetal heart rate or rhythm, third trimester, not applicable or unspecified (principal); Z3A.34 34 weeks gestation of pregnancy | CPT/HCPCS: 59025; 76815; G0378; G0379 ==

== ENCOUNTER → 2021-10-28 13:21 | Outpatient (CLI) | payer OTHER, MEDICAID, SELFPAY | PROVIDERS: PCP Registered Nurse; Referring Provider Obstetrics & Gynecology; Visit Provider Obstetrics & Gynecology | DX: O36.8390 Maternal care for abnormalities of the fetal heart rate or rhythm, unspecified trimester, not applicable or unspecified (principal) | CPT/HCPCS: 86235 ==

== ENCOUNTER → 2021-11-04 17:30 | Outpatient (CLI) | payer OTHER, MEDICAID, SELFPAY ==
[2021-11-05 16:13] LABS: Strep Grp B PCR NEG for Grp B Strep
== END ==
PROVIDERS: PCP Registered Nurse; Visit Provider Obstetrics & Gynecology
DX: Z34.83 Encounter for supervision of other normal pregnancy, third trimester (principal); Z3A.36 36 weeks gestation of pregnancy
CPT/HCPCS: 87653

== ENCOUNTER 2021-11-08 18:48 | Observation (INO) | payer OTHER, MEDICAID, SELFPAY | END 2021-11-08 20:10 | disposition home or self-care (01) | PROVIDERS: Admitting Provider Registered Nurse; PCP Registered Nurse; Referring Provider Registered Nurse; Visit Provider Registered Nurse | DX: O26.893 Other specified pregnancy related conditions, third trimester (principal); O47.1 False labor at or after 37 completed weeks of gestation; O36.8330 Maternal care for abnormalities of the fetal heart rate or rhythm, third trimester, not applicable or unspecified; N89.8 Other specified noninflammatory disorders of vagina; Z3A.37 37 weeks gestation of pregnancy | CPT/HCPCS: G0378; G0379 ==

== ENCOUNTER 2021-11-09 05:48 | Inpatient (IN) | payer OTHER, MEDICAID, SELFPAY ==
[2021-11-09] MEDS: LACTATED RINGERS 1,000 ML 100 ML IV ×2 (07:50→09:15)
[2021-11-09 08:05] LABS: Add Manual Diff / Slide Review NO; Basophils Absolute Auto 100 /uL (0-100); Basophils Percent Auto 0.5 % (0-2); Eosinophils Absolute Auto 200 /uL (0-450); Eosinophils Percent Auto 1.5 % (2-4); Hematocrit 37.6 % (36-46); Hemoglobin 13.2 g/dL (12.0-16.0); Lymphocytes Absolute Auto 2400 /uL (1100-4500); Lymphocytes Percent Auto 16.4 % (25-40); Mean Corpuscular Hemoglobin 30.6 PG (26-34); Mean Corpuscular Volume 87.5 fL (80-100); Monocytes Absolute Auto 1300 /uL (0-900); Monocytes Percent Auto 8.6 % (3-14); Neutrophils Absolute Auto 10700 /uL (1500-7000); Platelet Count 203 X10^3/uL (150-400); Red Cell Distribution Width 14.4 % (11.6-14.8); White Blood Cell Count 14.6 X10^3/uL (4.5-11.0)
[2021-11-09] MEDS: FENT 2MCG/ML BUPIV 0.125% EPI 200 MCG/100 ML PLAST..BAG 13 MCG EPIDURAL ×2 (08:20→12:48)
[2021-11-09 08:24] LABS: COVID19 -Nasal RAPID POSITIVE (Negative)
--- NOTE | 2021-11-09 08:41 | P.HPOB_ITS ---
OB HPI Date/Time Date of admission: 11/09/21 Date Patient Seen: 11/09/21 Time Patient Seen: 07:40 History of Present Condition Chief complaint: LABOR JARED Calculator Estimated Delivery Date Method Current WG Current Estimate 11/29/21 Ultrasound #1 37w 1d Other Estimates 11/15/21 LMP (Certain) 39w 1d Estimated Gestational Age (weeks): 37+1 : 2 Para: 0 care: good care, initiated at week # (8), number of visits (10) and pounds weight gain (40) Dating criteria OB: based on 1st trimester US only Ultrasounds: normal 1st trimester US and normal mid trimester US Obstetrical complications: other ( PAC's) Medical complications OB: none Preadmission Labs Last OB Lab Results: Blood Type O Positive 05/06/21 12:49 05/06/21 Antibody Screen Negative 05/06/21 12:49 05/06/21 Hematocrit 37.6 % (36-46) 11/09/21 07:48 11/09/21 Hemoglobin 13.2 g/dL (12.0-16.0) 11/09/21 07:48 11/09/21 Hepatitis B Surface Antigen Negative s/c (NEGATIVE) 05/06/21 12:49 05/06/21 Hepatitis C Antibody Negative s/c (NEGATIVE) 05/06/21 12:49 05/06/21 Rubella Antibody 12.3 IU/mL (>15) L 05/06/21 12:49 05/06/21 Varicella-Zoster IgG Antibody 491 index (Immune >165) 05/06/21 12:49 05/06/21 Glucose 1 Hour 135 mg/dL (76-139) 08/14/21 11:23 08/14/21 Group B Streptococcus (PCR) Neg for grp b strep 11/04/21 17:30 11/04/21 -: Chlamydia screen: negative and Gonorrhea screen: negative -: PAP smear: Normal Genetic Screens: Quad screen: Normal Prior (ies) Past Pregnancies Del. Date GA/Weeks Labor Lgth Wt Sex Route Outcome Anesthesia Place Delv Breastfeed Preg Comp Name 12/27/15 9-10 elective Evaluation Evaluation Baseline heart rate: 140 Variability: Moderate (11-25) monitor accelerations: Present Monitor Decelerations: Absent Contraction Frequency (minutes): 3 Uterine Contraction Intensity: Strong/Firm Status: Category l Dilation (cm): 8 Effacement (%): 100 station: +1 Position of cervix: anterior Consistency: soft Comments: Grossly ruptured [facility] Medical History (Updated 10/28/21 @ 08:58 by Clair Ga MD) Chronic eczema (~2010) Eczema (~2011) Fatty liver (~07/2020) GERD (gastroesophageal reflux disease) (~2019) Hand fracture, right (~2015) Infertility associated with anovulation No significant medical problems URI (upper respiratory infection) Surgical History (Updated 04/02/21 @ 14:20 by Sandi Michaels RN) Anesthesia History of tonsillectomy [place] teeth extracted (~2009) Family History (Updated 04/02/21 @ 14:31 by Sandi Michaels RN) Father History of quadruple bypass History of heart disease Hyperlipidemia Grandmother Diabetes mellitus Grandfather History of heart disease History of hernia surgery S/P coronary artery stent placement Mother No problems noted. Grandfather Colon cancer Grandmother S/P coronary artery stent placement Social History marital status: (Engaged. Will be 04/17/21.) number of children: 0 household members: spouse lives independently: Yes caregiver/support person: No housing: apartment pets and animals: Yes (2 cats: aware & safe. ) education level: high school occupational status: employed (Dental office) current occupational exposures/hazards: No special teodoro needs: No seatbelt use: always working smoke detector in home: Yes fire extinguisher in home: No carbon monox detector in home: Yes firearms in home: No do you feel safe at home: Yes Smoking Status: Former smoker Tobacco: How many years used: 9 (/ ppd.) quit status: quit date established (August 28, 2020) second hand exposure: No alcohol intake: former (Pre-: twice a week, a couple glasses. ) substance use type: marijuana (Quit w positive test. ) during the past year weight has: remained stable well-balanced diet: daily or most days daily servings fruits/ve or more times/day caffeine: Yes (1 cup a day, not every day. Occasional soda. ) Type(s) of exercise: walking frequency: 1-2 times per week Meds Home Medications and Allergies Home Medications Medication Instructions Recorded Confirmed Type prenat.vits,elisha,[id number] 1 tab PO DAILY 04/02/21 11/04/21 History hydrocortisone 2.5 % topical cream 1 applic TOPICAL BID PRN #30 g 04/19/21 11/04/21 Rx pantoprazole 40 mg tablet,delayed 40 mg PO DAILY #30 tab 08/30/21 11/04/21 Rx release (Protonix) Allergies Allergy/AdvReac Type Severity Reaction Status Date / Time No Known Drug Allergies Allergy Verified 11/04/21 16:10 OB Exam Narrative Exam Narrative: Generally: Patient in moderate distress secondary to contractions Lungs: Clear to auscultation bilaterally Cardiovascular: Regular rate and rhythm Fundal height: 37 cm Estimated weight: 6-1/2 lb Extremities: Trace edema, 1+ DTRs Objective Labs Result Diagrams: 11/09/21 07:48 Labs: Laboratory Results - last 24 hr 11/09/21 11/09/21 07:48 07:48 WBC 14.6 H RBC 4.30 Hgb 13.2 Hct 37.6 MCV 87.5 MCH 30.6 MCHC 35.0 RDW 14.4 Plt Count 203 Neut % (Auto) 73.0 Lymph % (Auto) 16.4 L Bullock % (Auto) 8.6 Eos % (Auto) 1.5 L Baso % (Auto) 0.5 Neut # (Auto) 36962 H Lymph # (Auto) 2400 Bullock # (Auto) 1300 H Eos # (Auto) 200 Baso # (Auto) 100 SARS-CoV-2 (PCR) Positive H Assessment and Plan Assessment and Plan Assessment and Plan narrative: Assessment: 30-year-old 2 para 0 at 37-,1/7 weeks gestation with spontaneous rupture membranes with clear amniotic fluid Active labor Desires epidural Plan: Epidural as necessary Expected management to spontaneous vaginal delivery Time Spent with Patient Total time spent with greater than 50% in coordination of care (as documented) at patient's floor/unit and/or counseling patient:: less than 15 minutes
[2021-11-09 13:16] VITALS: BP 143/80
[2021-11-09] MEDS: CALCIUM CARBONATE 500 MG TAB 1000 MG PO (13:30)
--- NOTE | 2021-11-09 18:32 | P.PCNOB_ITS ---
Labor & Delivery Delivery date: 11/09/21 Intrapartal Events: None Cervical ripening method: none Induction method: none Delivery monitor: external FHT and external uterine Route of delivery: Episiotomy description: None L&D Laceration Description: Superficial (bilateral labial and vaginal) Delivery repair: chromic Estimated blood loss (mL): 150 Anesthesia Type: Epidural Complications: None Narrative: Patient had a spontaneous vaginal delivery at 2:53 p.m.. Vertex presentation over an intact perineum. No nuchal cord. Baby placed on mom's abdomen. After cord stopped pulsing, the cord was double clamped and cut. Cord bloods were obtained. Placenta delivered intact with a three-vessel cord at 3:15 p.m.. Fundus was massaged to firm. Pitocin given in the IV fluids. Bilateral superficial labial and superficial vaginal lacerations repaired with 3-0 chromic. Estimated blood loss 150 cc. Apgars 7 at 1 minute and 9 at 5 minutes. Weight 6 lb 10 oz. . Epidural analgesia. Mom and infant stable to recovery. [place] Baby 1: gender: Female Presentation: vertex Position: Occiput Posterior Placenta delivery description: Spontaneous Cord Vessel Description: 3 Vessels and Clamped/Cut (After cord stopped pulsing) score (1 min): 7 score (5 min): 9 weight: 6 lb 10.2 oz Plan for aftercare: Routine care
[2021-11-09] MEDS: ACETAMINOPHEN 325 MG TABLET 650 MG PO (20:37)
[2021-11-09] MEDS: IBUPROFEN 600 MG TABLET PO (20:37)
[2021-11-10] MEDS: IBUPROFEN 600 MG TABLET PO ×3 (02:15→16:43)
[2021-11-10] MEDS: ACETAMINOPHEN 325 MG TABLET 650 MG PO ×3 (02:15→16:43)
[2021-11-10 05:44] LABS: Hematocrit 31.8 % (36-46)
[2021-11-10] MEDS: PRENATAL VIT,CALC/IRON/FOLIC 1 TABLET 1 TAB PO (10:02)
[2021-11-10] MEDS: DOCUSATE 100 MG CAPSULE PO (10:02)
[2021-11-10] MEDS: DERMOPLAST SPRAY 20% 60 ML 1 SPRAY TOP (10:04)
[2021-11-10 15:57] VITALS: BP 134/81; PULSE 97; RESP 20; TEMP 37
[2021-11-10] MEDS: MEASLES,MUMPS,RUBELLA VACC/PF 0.5 ML VIAL SUBCUT (16:43)
--- NOTE | 2021-11-10 23:15 | P.DS_ITS ---
Discharge Providers Provider Date of admission: 11/09/21 05:48 Discharge Date: 11/10/21 Primary care physician: JOHN Cochran Consults: 11/10/21 16:42 Consult to Business Unit Leader Routine Comment: Discharge provider: Clair Ga MD Summary Hospital Course Date Patient Seen: 11/10/21 Time Patient Seen: 10:30 Diagnoses: 37 weeks gestation Spontaneous labor Spontaneous rupture of membranes Spontaneous vaginal delivery Bilateral superficial labial and vaginal laceration Hospital Course: Patient is a 30-year-old 2 para 1 who presented at 37 weeks gestation with spontaneous rupture of membranes in active labor. She received an epidural for pain management. She progressed to complete dilation and had a spontaneous vaginal delivery without complication. Her course was unremarkable and on day # 1 she was discharged home. Peripartum Data Infant Delivery Method: Natural Vaginal Laceration Description: Labial (Superficial, bilateral) and Superficial (Vaginal) Episiotomy description: None Procedures: Epidural analgesia Spontaneous vaginal delivery Bilateral superficial labial and superficial vaginal laceration repair complications: none 1: Gender: Female Disposition of : home Status at Discharge Cognitive/behavioral status at discharge: oriented Functional status at discharge: independent ambulation Overall status at discharge: patient is progressing back to baseline Time Spent with Patient Time attestation: Total time spent providing and/or coordinating discharge services: Time spent: Less than 30 minutes Objective Labs Result Diagrams: 11/10/21 05:30 Labs: Laboratory Results - last 24 hr 11/10/21 05:30 Hgb 11.0 L Hct 31.8 L Exam Vital Signs (past 8 hours): - 11/10/21 15:57 Temperature 98.6 F Pulse Rate 97 H Respiratory Rate 20 Blood Pressure 134/81 Narrative Exam Narrative: Generally: Patient is sitting up in bed, no acute distress Fundus: Firm at U -1 Extremities: Negative Homans, trace edema Discharge Plan Discharge Plan Patient Disposition: Home Provider Discharge Comment: Call with fever, chills, or bleeding vaginally more than a pad in an hour Drink plenty of fluids Discharge orders & Medications Prescriptions: Continued prenat.vits,elisha,[id number] Tablet 1 tab PO DAILY 0RF Discontinued pantoprazole [Protonix] 40 mg tablet,delayed release (DR/EC) 40 mg PO DAILY Qty: 30 2RF Follow up/Referrals: Clair Ga MD [Physician] - (Your follow up appointment with Dr. Ga is scheduled for December 23 @2:00pm.) Diet/Activity/Treatments Diet: Regular Activity: Nothing in the vagina Skin/Wound/Dressing Care Report to your healthcare provider any signs of infection, such as:: chills, fever, increased pain and unusual drainage Visit Report/Discharge Packet Instructions: DI for Labor and Delivery, Vaginal Stand Alone Forms: Discharge: Care Discharge Data Primary Care Provider: Tong Strong
== END 2021-11-10 17:20 | disposition home or self-care (01) | DRG 560 ==
PROVIDERS: Obstetrics & Gynecology; Admitting Provider Nurse Practitioner Obstetrics & Gynecology; PCP Registered Nurse; Referring Provider Nurse Practitioner Obstetrics & Gynecology; Visit Provider Nurse Practitioner Obstetrics & Gynecology
DX: O70.0 First degree perineal laceration during delivery (principal); Z3A.37 37 weeks gestation of pregnancy; Z37.0 Single live birth; U07.1 COVID-19; O98.52 Other viral diseases complicating childbirth; Z23 Encounter for immunization; O26.893 Other specified pregnancy related conditions, third trimester; O47.1 False labor at or after 37 completed weeks of gestation; O36.8330 Maternal care for abnormalities of the fetal heart rate or rhythm, third trimester, not applicable or unspecified
CPT/HCPCS: 01967; 36415; 59025; 59050; 59409; 84112; 85014; 85018; 85025; 86850; 86900; 86901; 87635; C9803; G0378; G0379; J1100; J1885; J2250; J2405; J2704; J3010

== ENCOUNTER 2021-12-10 22:24 | Emergency (ER) | payer OTHER, MEDICAID, SELFPAY ==
[2021-12-10 22:33] VITALS: BP 122/61; PULSE 59; RESP 20; TEMP 36.8; O2SAT 98; BMI 32.5
[2021-12-11 00:25] LABS: Add Manual Diff / Slide Review NO; Basophils Absolute Auto 100 /uL (0-100); Basophils Percent Auto 0.8 % (0-2); Eosinophils Absolute Auto 200 /uL (0-450); Eosinophils Percent Auto 2.7 % (2-4); Hemoglobin 13.7 g/dL (12.0-16.0); Lymphocytes Absolute Auto 2200 /uL (1100-4500); Lymphocytes Percent Auto 24.9 % (25-40); Mean Corpuscular HGB Conc 33.4 % (30-36); Mean Corpuscular Hemoglobin 29.6 PG (26-34); Mean Corpuscular Volume 88.5 fL (80-100); Monocytes Absolute Auto 700 /uL (0-900); Neutrophils Absolute Auto 5600 /uL (1500-7000); Neutrophils Percent Auto 63.6 % (50-75); Platelet Count 250 X10^3/uL (150-400); Red Blood Cell Count 4.63 X10^6/uL (4.0-5.2); Red Cell Distribution Width 13.8 % (11.6-14.8); White Blood Cell Count 8.8 X10^3/uL (4.5-11.0)
[2021-12-11 00:36] LABS: Alanine Aminotransferase 122 IU/L (<35); Albumin 4.8 g/dL (3.5-5.0); Albumin Globulin Ratio 1.5 (1.0-2.8); Alkaline Phosphatase 87 U/L (38-126); Aspartate Aminotransferase 156 IU/L (14-36); BUN Creatinine Ratio 13.6 (6-22); Bilirubin Total 1.2 mg/dL (0.2-1.3); Blood Urea Nitrogen 14 mg/dL (7-17); Calcium 9.3 mg/dL (8.4-10.2); Carbon Dioxide 29 mmol/L (22-32); Chloride 104 mmol/L (98-107); Estimated Glomerular Filt Rate > 60 mL/min (>60); Globulin 3.3 g/dL (1.7-4.1); Glucose 106 mg/dL (70-100); HEMOLYSIS < 15 (0-50); Lipase 179 U/L (23-300); Sodium 142 mmol/L (137-145); Total Protein 8.1 g/dL (6.3-8.2)
--- NOTE | 2021-12-11 00:57 | DI.US.S_ITS ---
PROCEDURE: US ABDOMEN LIMITED INDICATIONS: RUQ pain, known gallbladder disease TECHNIQUE: Real-time scanning was performed of the abdominal and retroperitoneal organs, with image documentation. COMPARISON: [facility], US, US ABDOMEN LIMITED, 11/16/2020, 7:49. FINDINGS: Liver: Liver is normal in size and homogeneous in echotexture. Gallbladder: Gallbladder contains multiple small mobile gallstones. No gallbladder wall thickening. No pericholecystic fluid. Negative sonographic Fernández's sign. Biliary ducts: Intrahepatic bile ducts are non-dilated. Extrahepatic bile duct caliber measures 5 mm. Normal is 6-7 mm or less in diameter, or 10 mm or less post-cholecystectomy. Pancreas: Visualized portions of the pancreas are sonographically normal. IMPRESSION: Cholelithiasis without sonographic evidence for acute cholecystitis. Otherwise, unremarkable right upper quadrant abdominal ultrasound. Dictated by: Everett Henriquez M.D. on 12/11/2021 at 1:48 Approved by: Everett Henriquez M.D. on 12/11/2021 at 1:59
--- NOTE | 2021-12-11 01:36 | ED_ITS ---
HPI - Abdominal Pain General Chief Complaint: Abdominal Pain Stated Complaint: GALLBLADDER ATTACK Time Seen by Provider: 12/11/21 00:04 Source: patient and family Mode of arrival: Ambulatory History of Present Illness HPI narrative: 30F nonsmoker with history of prior gallbladder attack presents with family in the chief complaint of an episode of right upper quadrant pain that started about 30 minutes after eating lunch today. The pain is sharp and stabbing and has improved significantly. She admits to maybe some radiation to her back. She admits to some nausea but denies any vomiting. She has had no fever or chills. She denies any chest pain or shortness of breath. She has had no trouble or change with her bowel habits. She denies any dysuria, frequency or urgency. She had been seen previously at an outside facility and was told she likely had gallbladder disease but has yet to have any confirmatory studies Related Data Home Medications Medication Instructions Recorded Confirmed prenat.vits,elisha,[id number] 1 tab PO DAILY 04/02/21 12/03/21 Allergies Allergy/AdvReac Type Severity Reaction Status Date / Time No Known Drug Allergies Allergy Verified 12/03/21 09:12 Review of Systems Review of Systems Narrative: GENERAL: Denies chills, fatigue, malaise, fever, sweats. HEENT: Denies sinus pain, ear pain, sore throat, difficulty swallowing, dizziness. RESPIRATORY: Denies dyspnea, cough, wheezing, hemoptysis, sputum. CARDIOVASCULAR: Denies chest pain, palpitations, orthopnea, edema, GASTROINTESTINAL: see HPI : Denies dysuria, frequency, incontinence, hematuria, urinary retention. MUSCULOSKELETAL: denies weakness, joint pain, or bony pain SKIN: Denies rash, skin lesions, or other NEUROLOGIC: Denies weakness, headache, numbness, change in speech, confusion, seizures, incoordination. PSYCHIATRIC: No concerning psychosocial issues. 12 point review of systems is negative except for those stated above Patient History Medical History Chronic eczema (~2010) Eczema (~2011) Fatty liver (~07/2020) GERD (gastroesophageal reflux disease) (~2019) Hand fracture, right (~2015) Infertility associated with anovulation No significant medical problems URI (upper respiratory infection) Surgical History Anesthesia History of tonsillectomy [place] teeth extracted (~2009) Family History Father History of quadruple bypass History of heart disease Hyperlipidemia Grandmother Diabetes mellitus Grandfather History of heart disease History of hernia surgery S/P coronary artery stent placement Mother No problems noted. Grandfather Colon cancer Grandmother S/P coronary artery stent placement Social History marital status: number of children: 0 household members: spouse lives independently: Yes caregiver/support person: No housing: apartment pets and animals: Yes (2 cats: aware & safe. ) education level: high school occupational status: employed current occupational exposures/hazards: No special teodoro needs: No seatbelt use: always working smoke detector in home: Yes fire extinguisher in home: No carbon monox detector in home: Yes firearms in home: No do you feel safe at home: Yes Smoking Status: Former smoker Tobacco: How many years used: 9 quit status: quit date established second hand exposure: No alcohol intake: former substance use type: marijuana during the past year weight has: remained stable well-balanced diet: daily or most days daily servings fruits/ve or more times/day caffeine: Yes (1 cup a day, not every day. Occasional soda. ) Type(s) of exercise: walking frequency: 1-2 times per week Smoking Status: Former smoker alcohol intake frequency: 0-2 drinks per day Substance Use Type: marijuana Exam Narrative Exam Narrative: GENERAL: [30] year old patient appears stated age. Well-developed patient, in mild distress. HEAD: Atraumatic. Normocephalic. EYES: Pupils equal round and reactive. Extraocular motions intact. No scleral icterus. No injection or drainage. ENT: Nose without bleeding, purulent drainage. Throat without erythema, tonsillar hypertrophy or exudate. Airway patent. NECK: Trachea midline. Non tender CARDIOVASCULAR: Regular rate and rhythm without murmurs, gallops, or rubs. RESPIRATORY: Clear to auscultation. Breath sounds equal bilaterally. No wheezes, rales, or rhonchi. GASTROINTESTINAL: Abdomen soft, mild right upper quadrant tenderness, nondistended. EXTREMITIES: No edema or joint tenderness. BACK: Nontender without deformity or crepitance. No flank tenderness. NEURO: AOx3. SKIN: No rash or erythema of visible areas Initial Vital Signs Initial Vital Signs: Vital Signs Temperature 98.2 F 12/10/21 22:33 Pulse Rate 59 L 12/10/21 22:33 Respiratory Rate 20 12/10/21 22:33 Blood Pressure 122/61 12/10/21 22:33 Pulse Oximetry 98 12/10/21 22:33 Course Orders Ordered: Discontinued Medications Hydrocodone Bitart/Acetaminophen (Hydrocodone/Acet 5/325 Prepack) 1 bottle MISC SEEINSTR ONE Stop: 12/11/21 01:53 Last Admin: 12/11/21 01:58 Dose: 1 bottle Documented by: CAMRYN Ondansetron HCl (Ondansetron 4 Mg Odt Prepack) 1 bottle MISC SEEINSTR ONE Stop: 12/11/21 01:53 Last Admin: 12/11/21 01:58 Dose: 1 bottle Documented by: CAMRYN Vital Signs Vital signs: Vital Signs - 8 hr 12/10/21 22:33 Temperature 98.2 F Pulse Rate 59 L Respiratory Rate 20 Blood Pressure 122/61 Pulse Oximetry 98 MDM - Abdominal Pain Lab Data Result diagrams: 12/11/21 00:14 12/11/21 00:14 Labs: Lab Results 12/11/21 12/11/21 Range/Units 00:14 00:14 WBC 8.8 (4.5-11.0) X10^3/uL RBC 4.63 (4.0-5.2) X10^6/uL Hgb 13.7 (12.0-16.0) g/dL Hct 41.0 (36-46) % MCV 88.5 (80-100) fL MCH 29.6 (26-34) PG MCHC 33.4 (30-36) % RDW 13.8 (11.6-14.8) % Plt Count 250 (150-400) X10^3/uL Neut % (Auto) 63.6 (50-75) % Lymph % (Auto) 24.9 L (25-40) % Harris % (Auto) 8.0 (3-14) % Eos % (Auto) 2.7 (2-4) % Baso % (Auto) 0.8 (0-2) % Neut # (Auto) 5600 (8253-0869) /uL Lymph # (Auto) 2200 (9744-9954) /uL Harris # (Auto) 700 (0-900) /uL Eos # (Auto) 200 (0-450) /uL Baso # (Auto) 100 (0-100) /uL Sodium 142 (137-145) mmol/L Potassium 4.0 (3.4-5.1) mmol/L Chloride 104 (98-107) mmol/L Carbon Dioxide 29 (22-32) mmol/L BUN 14 (7-17) mg/dL Creatinine 1.03 (0.52-1.04) mg/dL Estimated GFR > 60 (>60) mL/min BUN/Creatinine Ratio 13.6 (6-22) Glucose 106 H (70-100) mg/dL Calcium 9.3 (8.4-10.2) mg/dL Total Bilirubin 1.2 (0.2-1.3) mg/dL AST 156 H (14-36) IU/L ALT 122 H (<35) IU/L Alkaline Phosphatase 87 (38-126) U/L Total Protein 8.1 (6.3-8.2) g/dL Albumin 4.8 (3.5-5.0) g/dL Globulin 3.3 (1.7-4.1) g/dL Albumin/Globulin Ratio 1.5 (1.0-2.8) Lipase 179 (23-300) U/L Imaging Data US - abdomen: Radiologist's Impression: [address] [address] Ultrasound Report Signed Patient: Destiny Alejandro MR#: [id number] : 1990 Acct:[id number] Age/Sex: 30 / F Date of Service: 12/11/21 Loc: ED Accession Number: [id number] ?? Procedure: US abdomen limited Ordering Provider: Lc Liriano D.O. PROCEDURE:? US ABDOMEN LIMITED ? INDICATIONS:? RUQ pain, known gallbladder disease ? TECHNIQUE:? Real-time scanning was performed of the abdominal and retroperitoneal organs, with image documentation.? ? COMPARISON:? [facility], US, US ABDOMEN LIMITED, 11/16/2020, 7:49. ? FINDINGS:? ? Liver:? Liver is normal in size and homogeneous in echotexture.? ? Gallbladder:? Gallbladder contains multiple small mobile gallstones.? No gallbladder wall thickening.? No pericholecystic fluid.? Negative sonographic Fernández's sign. ? Biliary ducts:? Intrahepatic bile ducts are non-dilated.? Extrahepatic bile duct caliber measures 5 mm.? Normal is 6-7 mm or less in diameter, or 10 mm or less post-cholecystectomy.? ? Pancreas:? Visualized portions of the pancreas are sonographically normal.? ? IMPRESSION:? ? Cholelithiasis without sonographic evidence for acute cholecystitis.? Otherwise, unremarkable right upper quadrant abdominal ultrasound. ? ? ? Dictated by: Everett Henriquez M.D. on 12/11/2021 at 1:48 ? ? Approved by: Everett Henriquez M.D. on 12/11/2021 at 1:59 ? MDM Narrative Medical decision making narrative: Reassuring history and physical exam, upper abdominal pain after eating, ultra sound shows gallstones but no signs of cholecystitis or other findings suggesting admission or surgeries needed. Pain is well controlled, she has no signs of sepsis and is tolerating orals. Other diagnoses such as bowel obstruction, pancreatitis or other are considered, however there thought less jossy casper given history, physical labs. Return precautions given and questions answered to her apparent satisfaction Discharge Plan Departure Patient Disposition: Home Clinical Impression: Abdominal pain, RUQ Instructions: DI for Abdominal Pain-Adult Activity Restrictions/Additional Instructions: *You have been diagnosed with [right upper quadrant pain, gallstones, slightly elevated elevated liver enzymes *What to do: *Please continue to take your regular medications as directed. [ ] New medication prescriptions sent to your pharmacy: [ ] [ ] New medication written as a paper prescription [x ] No new medications given * as we discussed, please consider a clear liquid diet for the next 24-48 hours and then moving forward avoid fatty foods as this is a trigger for your gallbladder * please call [facility] at the number listed below on Monday morning. Let them know you were seen in the emergency department and we would like you to be seen in follow-up *Return to Emergency Department if you should have any new, worsening or concerning symptoms, such as [fever greater than 101 F, shaking chills, worsening pain, persistent vomiting or other bothersome symptoms] Prescriptions: No Action prenat.vits,elisha,[id number] Tablet 1 tab PO DAILY 0RF Referrals: Star Gates MD [Physician] - Tong Strong ARNP [Primary Care Provider] -
[2021-12-11] MEDS: ONDANSETRON 4 MG ODT PREPACK 1 BOTTLE MISC (01:58)
[2021-12-11] MEDS: HYDROCODONE/ACET 5/325 PREPACK 1 BOTTLE MISC (01:58)
[2021-12-11 02:01] VITALS: BP 127/70; PULSE 78; O2SAT 99
== END 2021-12-11 02:04 | disposition home or self-care (01) ==
PROVIDERS: Emergency Provider Emergency Medicine; PCP Registered Nurse
DX: R10.11 Right upper quadrant pain (principal); R74.01 Elevation of levels of liver transaminase levels; R11.0 Nausea
CPT/HCPCS: 36415; 76705; 80053; 83690; 85025; 99283

== ENCOUNTER → 2021-12-15 10:54 | Outpatient (CLI) | payer OTHER, MEDICAID, SELFPAY ==
[2021-12-15 11:55] LABS: Add Manual Diff / Slide Review NO; Basophils Absolute Auto 100 /uL (0-100); Basophils Percent Auto 0.8 % (0-2); Eosinophils Absolute Auto 400 /uL (0-450); Eosinophils Percent Auto 5.3 % (2-4); Hematocrit 41.4 % (36-46); Hemoglobin 14.4 g/dL (12.0-16.0); Lymphocytes Absolute Auto 2500 /uL (1100-4500); Mean Corpuscular HGB Conc 34.7 % (30-36); Mean Corpuscular Hemoglobin 30.2 PG (26-34); Mean Corpuscular Volume 87.1 fL (80-100); Monocytes Absolute Auto 700 /uL (0-900); Monocytes Percent Auto 9.4 % (3-14); Neutrophils Absolute Auto 3400 /uL (1500-7000); Neutrophils Percent Auto 48.5 % (50-75); Platelet Count 245 X10^3/uL (150-400); Red Blood Cell Count 4.76 X10^6/uL (4.0-5.2); Red Cell Distribution Width 13.6 % (11.6-14.8); White Blood Cell Count 6.9 X10^3/uL (4.5-11.0)
[2021-12-15 12:15] LABS: Alanine Aminotransferase 67 IU/L (<35); Albumin 4.8 g/dL (3.5-5.0); Albumin Globulin Ratio 1.8 (1.0-2.8); Alkaline Phosphatase 79 U/L (38-126); Aspartate Aminotransferase 35 IU/L (14-36); Bilirubin Total 0.7 mg/dL (0.2-1.3); Blood Urea Nitrogen 12 mg/dL (7-17); Calcium 9.6 mg/dL (8.4-10.2); Carbon Dioxide 28 mmol/L (22-32); Chloride 105 mmol/L (98-107); Estimated Glomerular Filt Rate > 60 mL/min (>60); Globulin 2.7 g/dL (1.7-4.1); Glucose 75 mg/dL (70-100); HEMOLYSIS < 15 (0-50); Potassium 4.6 mmol/L (3.4-5.1); Sodium 142 mmol/L (137-145); Total Protein 7.5 g/dL (6.3-8.2)
== END ==
PROVIDERS: PCP Registered Nurse; Referring Provider Surgery; Visit Provider Surgery
DX: K80.20 Calculus of gallbladder without cholecystitis without obstruction (principal)
CPT/HCPCS: 36415; 80053; 85025; 99213

== ENCOUNTER → 2021-12-27 10:51 | Outpatient (CLI) | payer OTHER, MEDICAID, SELFPAY ==
[2021-12-27 13:41] LABS: COVID19 -Nasal RAPID Negative (Negative)
== END ==
PROVIDERS: PCP Registered Nurse; Visit Provider Surgery
DX: Z01.812 Encounter for preprocedural laboratory examination (principal); Z20.822 Contact with and (suspected) exposure to COVID-19
CPT/HCPCS: 87635; C9803

== ENCOUNTER 2021-12-28 07:27 | Day surgery (SDC) | payer OTHER, MEDICAID, SELFPAY ==
[2021-12-28] VITALS (10 sets, daily range): BP systolic 114–137; BP diastolic 68–85; PULSE 50–82; RESP 16–20; TEMP 36.1–36.4; O2SAT 96–98
--- NOTE | 2021-12-28 | PATH_ITS ---
[facility] Accession Number: [id number] . 01 Material submitted: . gallbladder - GALLBLADDER . 02 Diagnosis: Gallbladder, Cholecystectomy: Mild chronic cholecystitis, cholesterolosis, and cholelithiasis. The cystic duct is blocked by fragments of gallstone at gross examination. MRV 12/31/2021 1045 Local . 02 Electronically signed: . Laine Calix MD, Pathologist NPI- [id number] . 01 Gross description: . The specimen is received in formalin, labeled gallbladder, and consists of an intact gallbladder measuring 11.3 x 4.0 x 3.5 cm, with an average wall thickness of 0.2 cm. The hepatic bed (inked blue) and serosal surfaces are unremarkable. The cystic duct measures 0.3 cm in diameter and, upon opening, the specimen is blocked by an aggregate of yellow bosselated calculi measuring 6.7 x 2.0 x 0.6 cm in aggregate. Also noted upon opening is a significant amount of bile and bile-stained moderately trabeculated mucosa that exhibits pale yellow stippling. The specimen is representatively submitted as follows: . A1: Fundus, neck, and body, with cystic duct margin en face. (AM:[id number]) /MRV 12/29/2021 1319 Local . 02 Pathologist provided ICD-10: K80.20 . 02 CPT . 834874 Specimen Comment: A courtesy copy of this report has been sent to [phone] Performed at: 01 [facility] [address] [place] [id number] MD Johnnie Toth MD Phone: [phone] Performed at: 02 [facility] [address] [place] [address] [id number] MD Juani Chau MD Phone: [phone]
[2021-12-28] MEDS: LACTATED RINGERS 1,000 ML 42 ML IV ×2 (08:03→11:23)
[2021-12-28] MEDS: ACETAMINOPHEN 325 MG TABLET 975 MG PO (08:12)
[2021-12-28] MEDS: SCOPOLAMINE 1 PATCH TOP (08:13)
[2021-12-28] MEDS: GABAPENTIN 300 MG CAPSULE PO (08:13)
--- NOTE | 2021-12-28 08:56 | PM.PREOP ---
Pre-operative Note COVID-19 COVID-19 status: Negative Result date/Date tested (Pos, Neg/Pending): 12/27/21 Interval Note History & Physical reviewed/Exam performed by Physician: Yes Changes to H&P: No ASA Class (for procedural sedation): II
[2021-12-28] MEDS: CEFAZOLIN 2 GM/20 ML SYRINGE IV (09:26)
--- NOTE | 2021-12-28 09:51 | SUR.OPER ---
Supine on padded OR bed, head on pillow, arms secured on padded arm boards at <90 degrees abduction, legs uncrossed, safety belt at thigh, tape over blanket over lower legs. Footboard on bed with feet flat against. Directed and approved by surgeon
[2021-12-28] MEDS: BUPIVACAINE 0.5% (PF) VIAL 30 ML INJ (09:56)
[2021-12-28] MEDS: LIDOCAINE 1% W/EPI 20 ML INJ (09:57)
--- NOTE | 2021-12-28 10:45 | PM.OP.1 ---
Operative Date/Time/Diagnoses Date of procedure: 12/28/21 Time of procedure: 10:45 Pre-op diagnosis: Gallstones Post-op diagnosis: same Procedure & Clinicians Procedure: Laparoscopic cholecystectomy Same procedure as scheduled: Yes Indications: Gallstones Surgeon: Star Gates Anesthesia Type: General Operative Notes Procedure in detail: The patient was given preoperative antibiotic. The patient was brought to the operating room, placed on the table in the supine position. General endotracheal anesthesia was induced. The abdomen was prepped and draped. A time-out was performed. We made a 1 cm infraumbilical incision. We dissected down to the base of the umbilical stalk using cautery. We grasped the umbilical stalk with a Faheem clamp to elevate the abdominal wall. We scored the fascia in the midline with cautery 1 cm. We pierced the peritoneum with a Peon clamp. The Nishi port was placed and the abdomen was insufflated to 15 mmHg. A 5 mm 30 degree laparoscopic was inserted. There was no evidence of any injury from the entry. Next, we placed 5 mm ports in the subxiphoid position and right upper quadrant at the midclavicular line and anterior axillary line. Patient was then positioned in reverse Trendelenburg and the table was tilted to the left. The gallbladder was grasped at the dome and retracted cephalad. There were some adhesions of mesenteric tissue to the anterior wall of the gallbladder which were carefully dissected with cautery to allow full retraction of the gallbladder. We then dissected the cystic structures with a combination of hook cautery and blunt dissection. We obtained a critical view. We placed clips on the cystic duct and artery and divided the cystic duct and artery sharply between the clips. The gallbladder was then dissected off the liver and placed in a specimen retrieval bag. We irrigated the right upper quadrant and all the aspirate returned clear. We then removed the 5 mm ports under direct vision we removed the Nishi port. We then injected some local into the fascia and closed the fascia with 2 interrupted 0 Vicryl sutures. The skin incisions were closed with 4 Monocryl and Steri-Strips were applied. Band-Aids were applied over the Steri-Strips. EBL: 10 mL Specimen: Gallbladder Post-operative Condition: stable Disposition: PACU
[2021-12-28] MEDS: ONDANSETRON 4 MG/2 ML INJ IV ×2 (11:06→11:48)
[2021-12-28] MEDS: OXYCODONE IR 5 MG TABLET PO (11:18)
== END 2021-12-28 11:51 | disposition home or self-care (01) ==
PROVIDERS: PCP Nurse Practitioner; Referring Provider Surgery; Visit Provider Surgery
PROC: 0FT44ZZ Resection of Gallbladder, Percutaneous Endoscopic Approach (ICD-10-PCS; CPT 47562; principal; 2021-12-28 09:15)
DX: K80.10 Calculus of gallbladder with chronic cholecystitis without obstruction (principal); E66.9 Obesity, unspecified; K21.9 Gastro-esophageal reflux disease without esophagitis; Z68.33 Body mass index [BMI] 33.0-33.9, adult
CPT/HCPCS: 47562; J0330; J0690; J1100; J1885; J2250; J2405; J2704

== ENCOUNTER → 2021-12-31 14:10 | Outpatient (CLI) | payer OTHER, MEDICAID, SELFPAY ==
[2021-12-31 14:48] LABS: Add Manual Diff / Slide Review NO; Basophils Absolute Auto 100 /uL (0-100); Basophils Percent Auto 0.9 % (0-2); Eosinophils Absolute Auto 300 /uL (0-450); Eosinophils Percent Auto 3.7 % (2-4); Hematocrit 42.8 % (36-46); Hemoglobin 14.9 g/dL (12.0-16.0); Lymphocytes Absolute Auto 2800 /uL (1100-4500); Lymphocytes Percent Auto 32.3 % (25-40); Mean Corpuscular HGB Conc 34.8 % (30-36); Mean Corpuscular Volume 86.2 fL (80-100); Monocytes Absolute Auto 1000 /uL (0-900); Monocytes Percent Auto 11.8 % (3-14); Neutrophils Absolute Auto 4500 /uL (1500-7000); Neutrophils Percent Auto 51.3 % (50-75); Platelet Count 274 X10^3/uL (150-400); Red Blood Cell Count 4.96 X10^6/uL (4.0-5.2); Red Cell Distribution Width 13.2 % (11.6-14.8); White Blood Cell Count 8.8 X10^3/uL (4.5-11.0)
[2021-12-31 15:01] LABS: Alanine Aminotransferase 91 IU/L (<35); Albumin 4.8 g/dL (3.5-5.0); Albumin Globulin Ratio 1.5 (1.0-2.8); Alkaline Phosphatase 77 U/L (38-126); Aspartate Aminotransferase 43 IU/L (14-36); BUN Creatinine Ratio 21.6 (6-22); Bilirubin Total 0.4 mg/dL (0.2-1.3); Blood Urea Nitrogen 16 mg/dL (7-17); Carbon Dioxide 24 mmol/L (22-32); Chloride 107 mmol/L (98-107); Estimated Glomerular Filt Rate > 60 mL/min (>60); Globulin 3.3 g/dL (1.7-4.1); Glucose 124 mg/dL (70-100); HEMOLYSIS < 15 (0-50); Potassium 4.1 mmol/L (3.4-5.1); Sodium 141 mmol/L (137-145); Total Protein 8.1 g/dL (6.3-8.2)
== END ==
PROVIDERS: PCP Nurse Practitioner; Referring Provider Surgery; Visit Provider Surgery
DX: K80.20 Calculus of gallbladder without cholecystitis without obstruction (principal)
CPT/HCPCS: 36415; 80053; 85025

== ENCOUNTER → 2022-04-28 09:40 | Outpatient (CLI) | payer OTHER, MEDICAID, SELFPAY ==
--- NOTE | 2022-04-28 09:41 | DI.US.S_ITS ---
ULTRASOUND OF LEFT BREAST: 04/28/2022 CLINICAL: Palpable left breast lump. Comparison is made to exam dated: 10/09/2020 [facility]. Real-time ultrasound of the left breast was performed on the areas of interest. Giles scale images of the real-time examination were reviewed. There is a 3.4 cm x 2 cm x 3.2 cm irregular mass in the left breast at 1 o'clock middle depth. This irregular mass is hypoechoic. This abnormality is increased in size and correlates as palpated. Thiis previously measured 2.7 cm x 1.6 cm x 2.1 cm. There also is a lymph node with eccentric cortical thickening in the left axillary tail. IMPRESSION: SUSPICIOUS OF MALIGNANCY The 3.4 cm x 2 cm x 3.2 cm irregular mass in the left breast at 1 o'clock middle depth may represent a fibroadenoma or fibroepithelial lesion and is at a low suspicion for malignancy. An ultrasound guided biopsy is recommended. The lymph node with eccentric cortical thickening in the left axillary tail is probably benign. A decision regarding lymph node biopsy will be deferred until the breast biopsy results are reviewed. This was discussed with the patient by Dr. Henriquez at the time of the study. This exam was interpreted at Station ID: [id number]. Electronically Signed By: Flaca lama/:04/28/2022 11:01:56 letter sent: Biopsy Required Ultrasound BI-RADS: 4a Low suspicion for malignancy
== END ==
PROVIDERS: PCP Pediatrics; Referring Provider Pediatrics; Visit Provider Pediatrics
DX: N63.21 Unspecified lump in the left breast, upper outer quadrant (principal)
CPT/HCPCS: 76642

== ENCOUNTER → 2022-05-20 10:37 | Outpatient (CLI) | payer OTHER, MEDICAID, SELFPAY ==
--- NOTE | 2022-05-20 | PATH_ITS ---
[facility] Accession Number: [id number] . 01 Material submitted: . breast - LEFT BREAST MASS 2:00 . 01 Clinical history: . 6CM FROM NIPPLE . 01 Diagnosis: Left Breast, Mass at 2 o'clock, Image-Guided Core Biopsy: Fibroadenoma. Negative for significant atypia and malignancy. MRV 05/23/2022 1622 Local . 01 Electronically signed: . Mary Castillo MD, Pathologist NPI- [id number] . 01 Gross description: . Received one formalin-filled container, labeled with the patient's name and left breast 2 o'clock. The specimen is received with a plastic filter in container, sample loose in container, and consists of multiple fragments of light yellow-rand to partially translucent hand tissue which range in size from less than 0.1 cm to 1.0 x 0.3 x 0.3 cm. All fragments are totally submitted in one cassette. Possible collection date and time per requisition: 05/20/22 at 11:51. Total fixation time: Approximately 38 hours. ([id number]) /[facility] 05/21/2022 1438 Local . 01 Pathologist provided ICD-10: N60.22 . 01 CPT . 458804 Performed at: 01 [facility] [address] [place] [address] [address], [place], [place] [id number] MD Johnnie Toth MD Phone: [phone]
--- NOTE | 2022-05-20 | DI.MG.S_ITS ---
UNILATERAL LEFT DIGITAL DIAGNOSTIC MAMMOGRAM 3D/2D POST-PROCEDURE IMAGING FOR MARKER PLACEMENT: 05/20/2022 CLINICAL: Left post clip. Comparison is made to exams dated: 04/28/2022 ultrasound and 10/09/2020 ultrasound - [facility]. There is a biopsy clip in the left breast, 1.5 cm from the biopsy site, probably moved after it was place at the biopsy site. IMPRESSION: There is a biopsy clip in the left breast, 1.5 cm from the biopsy site. Based on the Tyrer Cuzick model (a risk assessment model) the patient's lifetime risk is 11.6% and her 10 year risk is 0.4%. According to the ACR, ACS, and NCCN guidelines, an annual breast MRI exam along with mammogram is recommended if the patient's lifetime risk is 20% or greater. This exam was interpreted at Station ID: [id number]. NOTE: For mammograms, a report in lay terms will be sent to the patient. Approximately 15% of breast malignancies will not be visualized mammographically. In the management of a palpable breast mass, a negative mammogram must not discourage biopsy of a clinically suspicious lesion. Electronically Signed By: Geovanna Lazo M.D. fx/:05/20/2022 12:42:41 ACR BI-RADS Category n/a
--- NOTE | 2022-05-20 10:38 | DI.US.S_ITS ---
ULTRASOUND GUIDED BIOPSY LEFT BREAST USING VACUUM DEVICE WITH POST MAMMOGRAPHIC AND ULTRASOUND IMAGIN05/20/2022 CLINICAL: Left breast mass. PATIENT CONSENT: Risks (minor bleeding, infection, vasovagal reaction and repeat procedure), benefits and alternatives were explained to the patient and written informed consent was obtained. Correlation is made to exams dated: 04/28/2022 ultrasound and 10/09/2020 [facility]. An ultrasound guided biopsy using real-time ultrasound was performed for the oval mass located in the left breast at 2 o'clock posterior depth. This was described on the previous ultrasound report. The skin was prepped in the usual manner. Local anesthetic was administered to the access site. The abnormality was approached from the lateral aspect. A 13 gauge biopsy needle was placed adjacent to the abnormality under ultrasound guidance. Once the needle was documented to be in the correct location, five specimens were obtained using the Mammotome biopsy system. Post procedure mammographic and ultrasound imaging demonstrates the clip at the targeted area. The specimens were sent to the laboratory for pathological analysis. IMPRESSION: ULTRASOUND GUIDED BIOPSY BENIGN Ultrasound guided biopsy of the mass in the left breast posterior depth was successful. Pathology indicates benign fibroadenoma. Pathology results are concordant with imaging findings. Recommend clinical follow up for persistent or worsening symptoms, or development of any clinically suspicious findings. Recommend initiating routine screening mammograms at age 40. This exam was interpreted at Station ID: [id number]. Geovanna Henriquez M.D. fx,aty/:05/25/2022 07:47:23
== END ==
PROVIDERS: PCP Pediatrics; Referring Provider Pediatrics; Visit Provider Pediatrics
DX: D24.2 Benign neoplasm of left breast
CPT/HCPCS: 19083; 77065

== ENCOUNTER → 2023-09-30 10:25 | Outpatient (CLI) | payer OTHER, SELFPAY ==
[2023-09-30 11:24] LABS: Hemoglobin A1C% w Est Avg Glu 5.5 % (4.0-6.0)
[2023-09-30 11:28] LABS: Alanine Aminotransferase 29 IU/L (<35); Albumin 4.8 g/dL (3.5-5.0); Albumin Globulin Ratio 1.3 (1.0-2.8); Alkaline Phosphatase 52 U/L (38-126); Aspartate Aminotransferase 31 IU/L (14-36); BUN Creatinine Ratio 16.7 (6-22); Bilirubin Total 0.7 mg/dL (0.2-1.3); Blood Urea Nitrogen 12 mg/dL (7-17); Calcium 9.5 mg/dL (8.4-10.2); Carbon Dioxide 25 mmol/L (22-32); Chloride 107 mmol/L (98-107); Cholesterol 264 mg/dL (140-199); Estimated Glomerular Filt Rate > 60 mL/min (>60); Globulin 3.6 g/dL (1.7-4.1); Glucose 91 mg/dL (70-100); HDL Cholesterol 37 mg/dL (40-60); HEMOLYSIS < 15 (0-50); LDL Cholesterol Calculated 197 mg/dL (<100); Sodium 140 mmol/L (137-145); Total Protein 8.4 g/dL (6.3-8.2); Triglycerides 148 mg/dL (35-150)
[2023-09-30 12:01] LABS: Thyroid Stimulating Hormone 5.05 uIU/mL (0.47-4.68)
== END ==
PROVIDERS: PCP Student in an Organized Health Care Education/Training Program; Referring Provider Student in an Organized Health Care Education/Training Program; Visit Provider Student in an Organized Health Care Education/Training Program
DX: Z13.1 Encounter for screening for diabetes mellitus (principal); Z13.29 Encounter for screening for other suspected endocrine disorder; E78.00 Pure hypercholesterolemia, unspecified; Z82.49 Family history of ischemic heart disease and other diseases of the circulatory system
CPT/HCPCS: 36415; 80053; 80061; 83036; 84443

== ENCOUNTER → 2023-11-20 13:13 | Outpatient (CLI) | payer OTHER, SELFPAY | PROVIDERS: PCP Student in an Organized Health Care Education/Training Program; Referring Provider Student in an Organized Health Care Education/Training Program; Visit Provider Student in an Organized Health Care Education/Training Program | DX: E03.8 Other specified hypothyroidism (principal) | CPT/HCPCS: 36415; 84443 ==

== ENCOUNTER → 2024-03-01 14:23 | Outpatient (CLI) | payer OTHER, SELFPAY ==
[2024-03-01 14:54] LABS: Hematocrit 41.5 % (36-46); Hemoglobin 14.3 g/dL (12.0-16.0); Mean Corpuscular HGB Conc 34.5 % (30-36); Mean Corpuscular Hemoglobin 29.5 PG (26-34); Mean Corpuscular Volume 85.4 fL (80-100); Platelet Count 283 X10^3/uL (150-400); Red Blood Cell Count 4.86 X10^6/uL (4.0-5.2); Red Cell Distribution Width 13.8 % (11.6-14.8); White Blood Cell Count 8.6 X10^3/uL (4.5-11.0)
[2024-03-01 15:21] LABS: Alanine Aminotransferase 24 IU/L (<35); Albumin 4.7 g/dL (3.5-5.0); Albumin Globulin Ratio 1.4 (1.0-2.8); Alkaline Phosphatase 57 U/L (38-126); Aspartate Aminotransferase 28 IU/L (14-36); BUN Creatinine Ratio 14.9 (6-22); Bilirubin Total 0.5 mg/dL (0.2-1.3); Blood Urea Nitrogen 13 mg/dL (7-17); Calcium 9.6 mg/dL (8.4-10.2); Carbon Dioxide 25 mmol/L (22-32); Chloride 108 mmol/L (98-107); Estimated Glomerular Filt Rate > 60 mL/min (>60); Globulin 3.4 g/dL (1.7-4.1); Glucose 102 mg/dL (70-100); HEMOLYSIS < 15 (0-50); Potassium 3.9 mmol/L (3.4-5.1); Sodium 140 mmol/L (137-145); Total Protein 8.1 g/dL (6.3-8.2)
[2024-03-01 15:24] LABS: HEMOLYSIS < 15 (0-50); Iron 97 ug/dL (37-170)
[2024-03-01 15:34] LABS: Percent Iron Saturation 23 % (15-50); Total Iron Binding Capacity 420 ug/dL (265-497); Transferrin 341 mg/dL (206-381)
[2024-03-01 15:56] LABS: Ferritin 17 ng/mL (6-137)
[2024-03-01 16:12] LABS: Neutrophils Absolute Manual 5160 /uL (3000-5900); RBC Morphology Normal Morphology; Total Cells Counted 100
== END ==
PROVIDERS: PCP Student in an Organized Health Care Education/Training Program; Referring Provider Student in an Organized Health Care Education/Training Program; Visit Provider Student in an Organized Health Care Education/Training Program
DX: N92.0 Excessive and frequent menstruation with regular cycle (principal); N92.6 Irregular menstruation, unspecified
CPT/HCPCS: 80053; 82728; 83540; 83550; 84402; 84403; 85025

== ENCOUNTER → 2024-03-08 08:26 | Outpatient (CLI) | payer OTHER, SELFPAY ==
--- NOTE | 2024-03-08 09:00 | DI.US.S_ITS ---
PROCEDURE: US PELVIC COMPLETE INDICATIONS: Irregular Menses TECHNIQUE: Real-time scanning was performed of the pelvic organs, with image documentation. Additional endovaginal scanning was necessary due to incomplete visualization of the adnexal and endometrial structures by transabdominal scanning. COMPARISON: [facility], US, US PELVIC COMPLETE, 03/12/2021, 8:37. FINDINGS: Uterus: Uterus is anteverted and normal in size at 7.6 x 3.9 x 5.5 cm. The myometrium is heterogeneous. The endometrium measures 5.9 mm combined thickness. Mid anterior sub mucosal focus of echogenicity measuring 9 x 8 x 8 mm. Ovaries: The right ovary measures 2.5 x 2.4 x 2.8 cm, with a calculated ovarian volume of 8.6 cc. The left ovary measures 2.6 x 1.7 x 2.2 cm, with a calculated ovarian volume of 5.2 cc. The ovaries have a normal sonographic appearance. Less than 12 follicles can be seen in each ovary. No adnexal masses are seen. Other: No pathologic free abdominal or pelvic fluid. IMPRESSION: Subcentimeter fibroid. Otherwise, unremarkable. We strive to produce accurate, complete, and clear reports of imaging services. To assist us in improving patient care, this report was composed using standard report templates and voice recognition software. Therefore, it may contain abnormal punctuation, insertions and/or omissions. Occasional wrong-word or sound-alike substitutions may occur. Though we review the report and make efforts to correct it, we do recommend that the report be read carefully in proper context to recognize any text inaccuracies. Dictated by: Danii Rea M.D. on 03/08/2024 at 16:43 Approved by: Danii Rea M.D. on 03/08/2024 at 16:43
== END ==
LOC: US 08:26
PROVIDERS: PCP Student in an Organized Health Care Education/Training Program; Referring Provider Student in an Organized Health Care Education/Training Program; Visit Provider Student in an Organized Health Care Education/Training Program
DX: N92.6 Irregular menstruation, unspecified (principal); D25.9 Leiomyoma of uterus, unspecified
CPT/HCPCS: 76856

== ENCOUNTER → 2024-03-15 10:08 | Outpatient (CLI) | payer OTHER, SELFPAY ==
--- NOTE | 2024-03-15 10:09 | DI.MG.S_ITS ---
BILATERAL DIGITAL DIAGNOSTIC MAMMOGRAM 3D/2D: 03/15/2024 CLINICAL: Left breast mass. Comparison is made to exams dated: 05/20/2022 ultrasound biopsy, 05/20/2022 mammogram, 04/28/2022 ultrasound, and 10/09/2020 ultrasound - [facility]. Both breasts are heterogeneously dense, which may obscure small masses (category c / 51-75% glandular tissue). There is an oval equal density mass with an obscured margin in the left breast at 2 o'clock posterior depth. This is seen in additional views. This is not significantly changed and correlates with ultrasound findings, area of clinical/papable concern, and the site of previous biopsy. There is a biopsy clip associated with the mass. No other significant masses, calcifications, or other findings are seen in either breast. IMPRESSION: INCOMPLETE: NEEDS ADDITIONAL IMAGING EVALUATION The oval equal density mass in the left breast is consistent with a fibroadenoma but remains indeterminate. An ultrasound is recommended for further evaluation and is scheduled to immediately follow this examination. Based on Tyrer-Cuzick model (a risk assessment model), the patient's lifetime risk is 28.6% and her 10 year risk is 1.6%. If a patient has an elevated risk, a more comprehensive evaluation should be considered and/or a referral to a genetic counselor. The [place] [employer], [employer], and NCCN Guidelines advise the consideration of Breast MRI as an adjunct to screening mammography in patients whose Lifetime risk to develop breast cancer is 20% or higher. This exam was interpreted at Station ID: [id number]. NOTE: For mammograms, a report in lay terms will be sent to the patient. Approximately 15% of breast malignancies will not be visualized mammographically. In the management of a palpable breast mass, a negative mammogram must not discourage biopsy of a clinically suspicious lesion. Electronically Signed By: Everett Henriquez M.D. aty/:03/15/2024 12:20:02 ACR BI-RADS Category 0: Incomplete [id number]
--- NOTE | 2024-03-15 10:09 | DI.US.S_ITS ---
LIMITED ULTRASOUND OF LEFT BREAST AND AXILLA: 03/15/2024 CLINICAL: Pt returns to re-eval Lt breast mass. Comparison is made to exams dated: 03/15/2024 mammogram, 05/20/2022 ultrasound biopsy, 05/20/2022 mammogram, 04/28/2022 ultrasound, and 10/09/2020 ultrasound - [facility]. Color flow and real-time ultrasound of the left breast 2 o'clock, and axilla regions were performed. Giles scale images of the real-time examination were reviewed. There is a benign 2.8 cm x 1.5 cm x 2.3 cm wider than tall oval mass with a circumscribed margin in the left breast at 2 o'clock middle depth 6 cm from the nipple. This oval mass is hypoechoic. This abnormality is decreased in size and less prominent and correlates as palpated, with mammography findings, and the previous biopsy. There is an associated biopsy clip. Color flow imaging demonstrates that there is no vascularity present. IMPRESSION: BENIGN There is no sonographic evidence of malignancy. The 2.8 cm x 1.5 cm x 2.3 cm wider than tall oval mass in the left breast is consistent with a biopsy proven fibroadenoma and is benign. Recommend clinical follow up for persistent or worsening symptoms, or development of any clinically suspicious findings. Recommend initiating routine screening mammograms at age 41. Additionally, patient has an elevated lifetime risk for breast cancer of greater than 20%. Recommend consideration for screening breast MRI as an adjunct to screening mammography. Findings and recommendations were conveyed to the patient during today's evaluation. This exam was interpreted at Station ID: [id number]. Electronically Signed By: Everett Henriquez M.D. aty/:03/15/2024 12:22:57 letter sent: Clinical Evaluation Ultrasound BI-RADS: 2 Benign
== END ==
LOC: MAMMO 10:09
PROVIDERS: PCP Student in an Organized Health Care Education/Training Program; Referring Provider Student in an Organized Health Care Education/Training Program; Visit Provider Student in an Organized Health Care Education/Training Program
DX: R92.8 Other abnormal and inconclusive findings on diagnostic imaging of breast (principal); N63.21 Unspecified lump in the left breast, upper outer quadrant; R92.333 Mammographic heterogeneous density, bilateral breasts
CPT/HCPCS: 76642; 77066; G0279

== ENCOUNTER → 2024-04-13 08:44 | Outpatient (CLI) | payer OTHER, SELFPAY ==
[2024-04-13 09:26] LABS: Glucose 101 mg/dL (70-100)
[2024-04-13 09:42] LABS: Follicle Stimulating Hormone 4.62 mIU/mL; Free T4, Direct Thyroxine 0.65 ng/dL (0.78-2.19); Luteinizing Hormone 4.49 mIU/mL
[2024-04-16 00:12] LABS: Insulin Level Total 15.7 uIU/mL (2.6-24.9)
== END ==
PROVIDERS: PCP Student in an Organized Health Care Education/Training Program; Referring Provider Obstetrics & Gynecology; Visit Provider Obstetrics & Gynecology
DX: E28.2 Polycystic ovarian syndrome (principal)
CPT/HCPCS: 36415; 82947; 83001; 83002; 83525; 84439

== ENCOUNTER → 2024-12-05 13:27 | Outpatient (CLI) | payer OTHER, SELFPAY ==
[2024-12-05 15:45] LABS: HCG Quantitative /Beta subunit 7.45 mIU/mL
== END ==
PROVIDERS: PCP Student in an Organized Health Care Education/Training Program; Referring Provider Specialist; Visit Provider Specialist
DX: N91.2 Amenorrhea, unspecified (principal)
CPT/HCPCS: 36415; 84702

== ENCOUNTER → 2024-12-07 07:38 | Outpatient (CLI) | payer OTHER, SELFPAY ==
[2024-12-07 10:04] LABS: HCG Quantitative /Beta subunit < 2.39 mIU/mL
== END ==
LOC: LAB 07:41
PROVIDERS: PCP Student in an Organized Health Care Education/Training Program; Referring Provider Specialist; Visit Provider Specialist
DX: N91.2 Amenorrhea, unspecified (principal)
CPT/HCPCS: 36415; 84702

== ENCOUNTER → 2024-12-27 08:44 | Outpatient (CLI) | payer OTHER, SELFPAY ==
[2024-12-27 10:36] LABS: Glucose 92 mg/dL (70-99)
[2024-12-27 10:49] LABS: Follicle Stimulating Hormone 5.05 mIU/mL; Luteinizing Hormone 5.37 mIU/mL
== END ==
PROVIDERS: PCP Student in an Organized Health Care Education/Training Program; Referring Provider Obstetrics & Gynecology; Visit Provider Obstetrics & Gynecology
DX: E28.2 Polycystic ovarian syndrome (principal); E03.8 Other specified hypothyroidism
CPT/HCPCS: 36415; 82947; 83001; 83002; 83525; 84439; 84443

== ENCOUNTER → 2025-01-22 12:58 | Outpatient (CLI) | payer OTHER, SELFPAY ==
[2025-01-22 16:04] LABS: HCG Quantitative /Beta subunit 18.64 mIU/mL
== END ==
LOC: LAB 12:58
PROVIDERS: PCP Student in an Organized Health Care Education/Training Program; Referring Provider Obstetrics & Gynecology; Visit Provider Obstetrics & Gynecology
DX: N91.2 Amenorrhea, unspecified (principal)
CPT/HCPCS: 36415; 84702

== ENCOUNTER → 2025-01-24 10:18 | Outpatient (CLI) | payer OTHER, SELFPAY ==
[2025-01-24 11:42] LABS: HCG Quantitative /Beta subunit 48.53 mIU/mL
[2025-01-24 11:43] LABS: Free T4, Direct Thyroxine 1.28 ng/dL (0.78-2.19)
== END ==
LOC: LAB 10:19
PROVIDERS: PCP Student in an Organized Health Care Education/Training Program; Referring Provider Obstetrics & Gynecology; Visit Provider Obstetrics & Gynecology
DX: Z34.90 Encounter for supervision of normal pregnancy, unspecified, unspecified trimester (principal); E03.9 Hypothyroidism, unspecified
CPT/HCPCS: 36415; 84439; 84702

== ENCOUNTER 2025-01-29 17:42 | Emergency (ER) | payer OTHER, SELFPAY ==
[2025-01-29] VITALS (8 sets, daily range): BP systolic 108–133; BP diastolic 65–75; PULSE 75–95; RESP 14–20; TEMP 36.6; O2SAT 97–100; BMI 31.7
--- NOTE | 2025-01-29 19:38 | PC.NURSE ---
Pt states she had a miscarriage last month and did not get a period this month. Unable to provide date of LMP. Pt took a test and it's positive. Pt has a scheduled appt with her OB next week but has been experiencing intermittent lightheadedness. Pt is concerned d/t recent loss and wanted to be evaluated. Pt denies abd pain or bleeding but report increase in discharge.
--- NOTE | 2025-01-29 22:51 | ED_ITS ---
HPI - General Adult General Chief complaint: Dizziness Stated complaint: newly , lightheadedness Time Seen by Provider: 01/29/25 22:41 Source: patient, RN notes reviewed and old records reviewed Mode of arrival: Ambulatory Limitations: no limitations History of Present Illness HPI narrative: 34-year-old female A1 unsure of her exact dates states she had a miscarriage in November which he would describe as her last vaginal bleeding and was found to be . Today got very lightheaded felt nauseated got very hot and sweaty had sort of a discomfort in her right lower quadrant that has not improved. She states it was not particularly painful but felt weird or uncomfortable. She states it is not in her flank. It is not in the middle or back. She denies any syncope. No chest pain or shortness of breath. No vomiting just nausea. No issues with bowel movements. No dysuria urgency or frequency. She has not appreciate any spotting or vaginal bleeding. She has not appointment on the [address] Ga for her care. She has had 1 prior delivered vaginally and her prior miscarriage in November. She states no daily medications. No prior surgeries. Former smoker, occasional alcohol but none since learning she was . No recreational drugs. Related Data Previous Rx's ?Medication ?Instructions ?Recorded letrozole 2.5 mg tablet 2.5 mg PO DAILY 5 days #5 ta bs 12/27/24 medroxyprogesterone 10 mg tablet 10 mg PO DAILY #10 ta bs 12/27/24 progesterone micronized 200 mg 200 mg PO BEDTIME #30 c aps 12/27/24 capsule (Prometrium) levothyroxine 100 mcg capsule 100 mcg PO DAILY #30 cap s 01/01/25 Allergies Allergy/AdvReac Type Severity Reaction Status Date / Time No Known Drug Allergies Allergy Verified 01/29/25 17:56 Review of Systems Review of Systems ROS Unobtainable: All systems reviewed & are unremarkable except as noted in HPI and below Patient History Medical History Ganglion cyst Hand fracture, right (~2015) Chronic eczema (~2010) GERD (gastroesophageal reflux disease) (~2019) Infertility associated with anovulation URI (upper respiratory infection) Fatty liver (~07/2020) Eczema (~2011) No significant medical problems Surgical History [place] teeth extracted (~2009) Anesthesia History of tonsillectomy Family History Father History of quadruple bypass History of heart disease Hyperlipidemia Grandmother Diabetes mellitus Grandfather History of heart disease History of hernia surgery S/P coronary artery stent placement Mother No problems noted. Grandfather Colon cancer Grandmother S/P coronary artery stent placement Social History marital status: number of children: 0 household members: spouse lives independently: Yes caregiver/support person: No housing: apartment pets and animals: Yes (2 cats: aware & safe. ) education level: high school occupational status: employed current occupational exposures/hazards: No special teodoro needs: No seatbelt use: always working smoke detector in home: Yes fire extinguisher in home: No carbon monox detector in home: Yes firearms in home: No do you feel safe at home: Yes Smoking Status: Former smoker Tobacco: How many years used: 9 Smokeless tobacco user: other quit status: considering quitting second hand exposure: No alcohol intake: current substance use type: marijuana during the past year weight has: remained stable well-balanced diet: daily or most days daily servings fruits/ve or more times/day caffeine: Yes (1 cup a day, not every day. Occasional soda. ) Type(s) of exercise: walking frequency: 1-2 times per week Smoking Status: Former smoker alcohol intake frequency: 0-2 drinks per day Exam Narrative Exam Narrative: GENERAL: Alert and oriented x three, female in mild distress HEENT: Head normocephalic, atraumatic, EOMI, pupils reactive, face symmetric, moist mucous membranes NECK: Supple, full range of motion CARDIOVASCULAR: Regular rate and rhythm without murmurs, rubs or gallops. RESPIRATORY: Breath sounds equal bilaterally, no wheezes rales or rhonchi. ABDOMEN: Soft, nontender. Normoactive bowel sounds all 4 quadrants. No guarding or rebound, rigidity, no mass : No CVA tenderness EXTREMITIES: Normal range of motion, no clubbing or edema. Neurovascularly intact NEUROLOGICAL: Cranial nerves II through XII grossly intact. Moving all extremities SKIN: Warm, dry, no petechiae, no rashes or lesions. Initial Vital Signs Initial Vital Signs: Vital Signs Temperature 98 F 01/29/25 17:56 Pulse Rate 95 H 01/29/25 17:56 Respiratory Rate 20 01/29/25 17:56 Blood Pressure 133/70 01/29/25 17:56 Pulse Oximetry 98 01/29/25 17:56 Oxygen Delivery Method Room Air 01/29/25 17:56 Course Orders Ordered: ED Orders 01/29/25 22:59 US OB <= 14 weeks fetus Stat 01/29/25 23:25 CBC Auto Diff [Complete Blood Count AUTO DIFF] Stat HCG Quantitative /Beta subunit Stat Vital Signs Vital signs: Vital Signs - 8 hr 01/29/25 19:30 01/29/25 19:32 01/29/25 19:32 Temperature Pulse Rate 75 77 Respiratory Rate 19 17 Blood Pressure 125/75 Pulse Oximetry 99 100 Oxygen Delivery Method 01/29/25 20:00 01/29/25 20:00 01/29/25 20:30 Temperature Pulse Rate 76 77 Respiratory Rate 18 16 Blood Pressure 111/67 Pulse Oximetry 100 98 Oxygen Delivery Method 01/29/25 20:30 01/29/25 22:28 01/29/25 22:28 Temperature Pulse Rate 90 Respiratory Rate 14 Blood Pressure 108/65 113/75 Pulse Oximetry 97 Oxygen Delivery Method 01/29/25 22:30 01/30/25 00:34 01/30/25 00:35 Temperature 97.8 F Pulse Rate 87 64 Respiratory Rate 14 Blood Pressure Pulse Oximetry 97 99 99 Oxygen Delivery Method Room Air 01/30/25 00:35 01/30/25 01:39 Temperature Pulse Rate 88 Respiratory Rate 14 15 Blood Pressure 125/62 121/71 Pulse Oximetry 100 Oxygen Delivery Method Room Air Medical Decision Making Lab Data 01/29/25 23:25 Labs: Lab Results 01/29/25 Range/Units 23:25 WBC 12.1 H (4.5-11.0) X10^3/uL RBC 4.73 (4.0-5.2) X10^6/uL Hgb 13.8 (12.0-16.0) g/dL Hct 40.6 (36-46) % MCV 85.8 (80-100) fL MCH 29.1 (26-34) PG MCHC 33.9 (30-36) % RDW 13.2 (11.6-14.8) % Plt Count 337 (150-400) X10^3/uL Neut % (Auto) 54.1 (50-75) % Lymph % (Auto) 34.0 (25-40) % [place] % (Auto) 8.3 (3-14) % Eos % (Auto) 2.5 (2-4) % Baso % (Auto) 1.1 (0-2) % Neut # (Auto) 6600 (6031-6201) /uL Lymph # (Auto) 4100 (0409-9181) /uL [place] # (Auto) 1000 H (0-900) /uL Eos # (Auto) 300 (0-450) /uL Baso # (Auto) 100 (0-100) /uL HCG, Quant 717.01 mIU/mL Point of Care Testing Test Results Positive Urine Dip Bedside Urine Glucose Negative Bedside Urine Bilirubin - Negative Bedside Urine Ketone - Negative Urine Specific [place] 1.010 Bedside Urine Occult Blood - Negative Bedside Urine pH 6.0 Bedside Urine Protein - Negative Bedside Urine Urobilinogen - Negative Bedside Urine Nitrite - Negative Bedside Urine Leukocytes - Negative Esterase Point of care testing: Point of Care Testing Test Results Positive Urine Dip Bedside Urine Glucose Negative Bedside Urine Bilirubin - Negative Bedside Urine Ketone - Negative Urine Specific [place] 1.010 Bedside Urine Occult Blood - Negative Bedside Urine pH 6.0 Bedside Urine Protein - Negative Bedside Urine Urobilinogen - Negative Bedside Urine Nitrite - Negative Bedside Urine Leukocytes - Negative Esterase [facility] Narrative Medical decision making narrative: urine is positive, point of care urine is negative. Labs show white count of 12 hemoglobin of 13 platelets of 337. HCG is 717 patient had hCG on 01/24/2025 which was 48 and on 01/22/2025 which was 18. OB ultrasound less than 14 weeks no pole identified within endometrium suspected intrauterine gestational sac measuring 0.5 cm adjacent hypoechoic lesion measuring 2 x 1 point cm vascularity intramural fibroid measuring 0.8 cm. Moderate pelvic free fluid present. Partially solid partially cystic structure at right adnexa is present with peripheral vascularity. Moderate pelvic free fluid. Remains indeterminate for corpus luteum versus early ectopic. Gestational sac versus pseudo gestational sac seen at uterus without pole identified. Likely unrelated hypoechoic endometrial lesion measuring 2 x 1 point cm possibly polyp. 34-year-old female comes in with feeling lightheaded little bit nauseated and a right lower quadrant discomfort she states was not particularly painful but felt odd or uncomfortable. Discuss is likely less likely an ectopic but patient has not had any OB ultrasound and it was very localized to the right lower quadrant. She does have a positive urine . After discussion we will proceed with the ectopic rule out. Labs show an increase in hCG 717 ultrasound shows possible gestational sac versus pseudo gestational sac with possible right adnexal corpus luteum versus early ectopic. Discussed with OBGYN, we will have patient was short term follow up there reach out today. Spoke with the patient reviewed all of her findings concern for possible potential early ectopic. She was no pain at this time she was comfortable discharge home but expresses understanding for strict return precautions. Reviewed all of her findings. Spoke with Dr. Dowell at 0123, reviewed findings with Dr. Powell patient is to have strict return precautions follow up with Dr. Ga in the next day. Patient should be contacted later today for follow up. Discharge Plan Departure Patient Disposition: Home Clinical Impression: , Dizziness Activity Restrictions/Additional Instructions: Your imaging today shows a possible gestational sac versus pseudo gestational sac and change in the right adnexa that has possibly a corpus luteum versus early ectopic. There is also a small suspected polyp as well. I spoke with on- call switchboard wire worker helper today. Please call the office later this morning for short term follow up with Dr. Ga. They may reach out to you 1st thing in the morning. But if you have not heard from them by noon call today. Return if you have new or worsening abdominal pain, lightheadedness or passing out, nausea or vomiting, new chest pain or shortness of breath, new vaginal bleeding or other new or concerning changes. Prescriptions: No Action levothyroxine 100 mcg capsule 100 mcg PO DAILY Qty: 30 11RF medroxyprogesterone 10 mg tablet 10 mg PO DAILY Qty: 10 2RF letrozole 2.5 mg tablet 2.5 mg PO DAILY 5 Days Qty: 5 3RF Rx Instructions: 1 tablet daily Day 3- Day 7 of cycle progesterone micronized [Prometrium] 200 mg capsule 200 mg PO BEDTIME Qty: 30 4RF Referrals: lCair Ga MD [Physician, [facility]] Patria Chowdhury MD [Primary Care Provider, [facility]] Stand Alone Forms: Patient Portal/API
--- NOTE | 2025-01-29 22:59 | DI.US.S_ITS ---
PROCEDURE: US OB <= 14 WEEKS FETUS INDICATIONS: RLQ discomfort, lightheaded OUTSIDE/PRIOR DATING DATA: Last menstrual period (LMP): Unknown. TECHNIQUE: Real-time scanning was performed of the fetus and maternal pelvic organs, with image documentation. Endovaginal scanning was also performed to better visualize the fetus and maternal ovaries. COMPARISON: [facility], US, US PELVIC COMPLETE, 12/27/2024, 8:33. [facility], US, US OB <= 14 WEEKS FETUS, 04/09/2021, 8:20. FINDINGS: No pole identified within the endometrium. Suspect intrauterine gestational sac is present measuring 0.5 cm. Adjacent hyperechoic lesion measures 2 x 1 cm, with vascularity. Intramural fibroid is present measuring 0.8 cm. Moderate pelvic free fluid is present. Partially solid partially cystic structure at the right adnexa is present with peripheral vascularity. IMPRESSION: Moderate pelvic free fluid. Partially solid partially cystic structure at the right adnexa with peripheral vascularity. This remains indeterminate for a corpus luteum versus early ectopic. A gestational sac versus pseudo gestational sac is seen in the uterus, without a pole identified. Likely unrelated hyperechoic endometrial lesion measuring 2 x 1 cm, possibly a polyp. Dictated by: Chuckie Tracy M.D. on 01/30/2025 at 0:38 Approved by: Chuckie Tracy M.D. on 01/30/2025 at 0:43
[2025-01-29 23:31] LABS: Add Manual Diff / Slide Review NO; Basophils Absolute Auto 100 /uL (0-100); Basophils Percent Auto 1.1 % (0-2); Eosinophils Absolute Auto 300 /uL (0-450); Eosinophils Percent Auto 2.5 % (2-4); Hematocrit 40.6 % (36-46); Hemoglobin 13.8 g/dL (12.0-16.0); Lymphocytes Absolute Auto 4100 /uL (1100-4500); Mean Corpuscular HGB Conc 33.9 % (30-36); Mean Corpuscular Hemoglobin 29.1 PG (26-34); Mean Corpuscular Volume 85.8 fL (80-100); Monocytes Absolute Auto 1000 /uL (0-900); Monocytes Percent Auto 8.3 % (3-14); Neutrophils Absolute Auto 6600 /uL (1500-7000); Neutrophils Percent Auto 54.1 % (50-75); Platelet Count 337 X10^3/uL (150-400); Red Blood Cell Count 4.73 X10^6/uL (4.0-5.2); Red Cell Distribution Width 13.2 % (11.6-14.8); White Blood Cell Count 12.1 X10^3/uL (4.5-11.0)
[2025-01-29 23:59] LABS: HCG Quantitative /Beta subunit 717.01 mIU/mL
[2025-01-30 00:34] VITALS: O2SAT 99
[2025-01-30 00:35] VITALS: BP 125/62; PULSE 64; RESP 14; TEMP 36.6; O2SAT 99
[2025-01-30 01:39] VITALS: BP 121/71; PULSE 88; RESP 15; O2SAT 100
== END 2025-01-30 01:40 | disposition home or self-care (01) ==
PROVIDERS: Emergency Provider Emergency Medicine; PCP Student in an Organized Health Care Education/Training Program
DX: O26.91 Pregnancy related conditions, unspecified, first trimester (principal); R42 Dizziness and giddiness; R10.31 Right lower quadrant pain
CPT/HCPCS: 36415; 76801; 76817; 81003; 81025; 84702; 85025; 99283; 99284

== ENCOUNTER → 2025-01-31 09:57 | Outpatient (CLI) | payer OTHER, SELFPAY ==
[2025-01-31 11:49] LABS: HCG Quantitative /Beta subunit 1673.6 mIU/mL
== END ==
PROVIDERS: PCP Student in an Organized Health Care Education/Training Program; Referring Provider Obstetrics & Gynecology; Visit Provider Obstetrics & Gynecology
DX: Z34.90 Encounter for supervision of normal pregnancy, unspecified, unspecified trimester (principal)
CPT/HCPCS: 36415; 84702

== ENCOUNTER → 2025-03-07 12:27 | Outpatient (CLI) | payer OTHER, SELFPAY ==
[2025-03-08 14:08] LABS: Trichomoas vaginalis Negative (Negative)
== END ==
PROVIDERS: PCP Student in an Organized Health Care Education/Training Program; Visit Provider Obstetrics & Gynecology
DX: N89.8 Other specified noninflammatory disorders of vagina (principal)
CPT/HCPCS: 87480; 87510; 87660

== ENCOUNTER 2025-03-11 10:56 | Day surgery (SDC) | payer OTHER, SELFPAY ==
[2025-03-07 14:03] VITALS: BMI 33.0
--- NOTE | 2025-03-11 | PATH_ITS ---
[facility] Accession Number: [id number] No. of containers..01 Tissue . 01 Material submitted: . product of conception - PRODUCTS OF CONCEPTION . 01 Diagnosis: PRODUCTS OF CONCEPTION: [place] and immature chorionic villi, consistent with products of conception. No tissue identified. Negative for gestational trophoblastic disease. [facility] 03/14/2025 0949 Local . 01 Electronically signed: . Faye Weeks DO, Pathologist NPI- [id number] . 01 Gross description: . Received in formalin with two identifiers and products of conception, are multiple fragments of red-brown, spongy to membranous soft tissue admixed with mucohemorrhagic material aggregating to 0.7 x 6.0 x 1.5 cm. No tissue is definitively identified, and motor vehicle field representative sections are submitted in A1-A2. ([id number]) /MRV 03/12/2025 1734 Local . 01 Pathologist provided ICD-10: O02.1 . 01 CPT . 610945 Specimen Comment: A courtesy copy of this report has been sent to [phone] Performed at: [address] [address], [place], [place] [id number] MD Johnnie Toth MD Phone: [phone]
[2025-03-11 11:20] VITALS: BP 118/71; PULSE 58; RESP 16; TEMP 36.2; O2SAT 100; BMI 32.8
[2025-03-11] MEDS: LACTATED RINGERS 1,000 ML 42 ML IV (11:24)
[2025-03-11] MEDS: FAMOTIDINE 20 MG/2 ML VIAL IV (11:24)
--- NOTE | 2025-03-11 12:53 | PM.GYNHP.1 ---
History of Present Illness History of Present Illness Reason for admission: missed Narrative: Destiny Alejandro is a 34 year old female 3 para 1 with a missed at 9 weeks gestation. She presents for a suction D&C. [facility] Medical History (Updated 02/14/25 @ 00:00 by ) Ganglion cyst Hand fracture, right (~2015) Chronic eczema (~2010) GERD (gastroesophageal reflux disease) (~2019) Infertility associated with anovulation URI (upper respiratory infection) Fatty liver (~07/2020) Eczema (~2011) No significant medical problems Surgical History (Updated 02/11/25 @ 13:04 by Arin Garcia RN) History of cholecystectomy [place] teeth extracted (~2009) Anesthesia History of tonsillectomy Family History (Updated 02/11/25 @ 13:10 by Arin Garcia RN) Father History of quadruple bypass History of heart disease Hyperlipidemia Grandmother Diabetes mellitus Grandfather History of heart disease History of hernia surgery S/P coronary artery stent placement Mother Age: 57 Breast cancer Grandfather Colon cancer Grandmother S/P coronary artery stent placement Social History marital status: number of children: 1 household members: spouse and children lives independently: Yes caregiver/support person: No housing: apartment (moving into [facility] soon) pets and animals: Yes (2 cats: aware & safe. ) education level: high school occupational status: employed (dental school bus driver/teacher assistant) current occupational exposures/hazards: Yes (aware) special teodoro needs: No seatbelt use: always water heater temp set < 120 deg: Yes working smoke detector in home: Yes fire extinguisher in home: Yes carbon monox detector in home: Yes firearms in home: No do you feel safe at home: Yes Smoking Status: Never smoker Tobacco: How many years used: 9 Smokeless tobacco user: other quit status: considering quitting second hand exposure: No alcohol intake: former substance use type: marijuana (not while /) during the past year weight has: remained stable well-balanced diet: rarely or never daily servings fruits/ve-1 (1-2) caffeine: Yes (single cup coffee in AM) Type(s) of exercise: none frequency: 1-2 times per week Meds Home Medications and Allergies Home Medications ?Medication ?Instructions ?Recorded ?Confirmed ?Type progesterone micronized 200 mg 200 mg PO BEDTIME #30 caps 12/27/24 02/14/25 Rx capsule (Prometrium) aspirin 81 mg tablet,delayed 81 mg PO DAILY 02/11/25 03/11/25 History release (Adult Low Dose Aspirin) levothyroxine 100 mcg tablet 100 mcg PO DAILY 02/11/25 03/11/25 History vitamin-ferrous sulfate tab PO 02/11/25 02/14/25 History 27 mg iron-folic acid 0.8 mg tablet fluconazole 150 mg tablet 150 mg PO ONCE #1 tab 03/10/25 03/11/25 Rx Allergies Allergy/AdvReac Type Severity Reaction Status Date / Time No Known Drug Allergies Allergy Verified 03/11/25 11:19 Exam Vital Signs (past 8 hours): - 03/11/25 11:20 Temperature 97.1 F L Pulse Rate 58 L Respiratory Rate 16 Blood Pressure 118/71 Pulse Oximetry 100 Oxygen Delivery Method Room Air Oxygen Delivery Method Room Air Narrative Exam Narrative: HEENT: No thyromegaly, no anterior cervical or supraclavicular lymphadenopathy. Lungs:Clear to auscultation bilaterally, no wheezes. Cardiovascular: Regular rate and rhythm, no murmurs, rubs, or gallops. Abdomen: Well-healed laparoscopy scars. No hepatosplenomegaly. No masses palpable. External genitalia: Normal Vagina: Normal Cervix: Normal Bimanual exam: 9 Week size uterus. Mobile. Extremities: No edema Assessment & Plan Assessment & Plan narrative: Assessment: 34-year-old 3 para 1021 at 9 weeks gestation with a missed Plan: Suction D and C The risks, benefits, and alternatives to the procedure were explained to the patient. The risks including bleeding, infection, and uterine perforation. She understands these risks and agrees to proceed. A full par Q was held and consent form was signed. Consent for disposal of tissue was signed Consent for some tissue to go for genetic testing was signed Time-Based Coding :: [TOTAL MINUTES] spent with patient and on the chart (including review of chart, obtaining history, exam, reviewing outside data, placing orders, documenting exam and treatment plan, and counseling patient) on [DATE].
--- NOTE | 2025-03-11 12:58 | PM.PREOP ---
Pre-operative Note Interval Note History & Physical reviewed/Exam performed by Physician: Yes Changes to H&P: No H&P completed within 30 days and has changed as indicated here:: 03/11/25
--- NOTE | 2025-03-11 13:21 | SUR.OPER ---
Lithotomy on padded OR bed, head on pillow, arms secured on padded arm boards at <90 degrees abduction. Legs secured in padded yellow fins stirrups.
--- NOTE | 2025-03-11 13:30 | PM.GYNOP.1 ---
Operative Date/Time/Diagnoses Date of procedure: 03/11/25 Time of procedure: 13:30 Pre-op diagnosis: Missed at 9 weeks gestation Post-op diagnosis: same Procedure & Clinicians Procedure: Procedures Operation Date: 03/11/25 12:30 Actual Procedure Side Surgeon p Suction Dilation and Curettage Clair Ga MD Indications: 34-year-old 3 para 1 with a missed at 9 weeks gestation Surgeon: Clair Ga Anesthesia Type: General (LMA) Operative Notes Findings: 9 week size anteverted uterus Large amount of products of conception Specimen(s): products of conception Applied: none Estimated blood loss (mL): 100 Blood products transfused: none Procedure in detail: After informed consent was obtained, the patient was taken to the operating room where she was placed in the dorsal supine position. After adequate LMA general anesthesia was achieved, she was placed in the dorsal lithotomy position, and prepped and draped in the usual sterile fashion. A time-out was performed. A bivalve speculum was placed into the vagina and the anterior lip of the cervix was grasped with a single-tooth tenaculum. The cervical os was sequentially dilated until the # 9 curved plastic curette could pass easily into the endometrial cavity. Several passes with suction revealed a large amount of fluid and blood. On the third pass there was a large amount of tissue. The curette was removed from the uterus. Polyp forceps were used to grasp a large amount of products conception sitting in the cervical os. Several more passes with suction revealed blood only. The instruments were removed from the uterus. The single-tooth tenaculum was removed from the anterior lip of the cervix. There was a small amount of bleeding from the tenaculum sites. A ring forcep was placed on the anterior lip of the cervix for hemostasis. The ring forcep was removed. The bivalve speculum was removed from the vagina. Sponge, lap, and instrument counts were correct x2. The patient tolerated the procedure well, and was taken to PACU in stable condition. Complications: none Post-operative Condition: stable Disposition: PACU Plan for aftercare: Home after recovery
[2025-03-11 13:35] VITALS: BP 136/74; PULSE 95; RESP 11; TEMP 36.4; O2SAT 99
[2025-03-11 13:40] VITALS: BP 133/38; PULSE 95; RESP 12; O2SAT 100
[2025-03-11 13:45] VITALS: BP 131/74; PULSE 71; RESP 14; O2SAT 100
[2025-03-11] MEDS: ACETAMINOPHEN IV 1,000 MG/100 ML VIAL 400 MG IV (13:48)
[2025-03-11 13:52] VITALS: BP 113/64; PULSE 47; RESP 12; O2SAT 100
== END 2025-03-11 14:46 | disposition home or self-care (01) ==
PROVIDERS: PCP Student in an Organized Health Care Education/Training Program; Referring Provider Student in an Organized Health Care Education/Training Program; Visit Provider Obstetrics & Gynecology
PROC: (CPT 58120; principal; 2025-03-11 12:30)
DX: O02.1 Missed abortion (principal); Z3A.09 9 weeks gestation of pregnancy
CPT/HCPCS: 59820; J0131; J1100; J1885; J2250; J2405; J2704; J3010

== ENCOUNTER → 2025-08-12 13:06 | Outpatient (CLI) | payer OTHER, SELFPAY ==
[2025-08-12 14:05] LABS: HCG Quantitative /Beta subunit < 2.39 mIU/mL
== END ==
PROVIDERS: PCP Student in an Organized Health Care Education/Training Program; Referring Provider Student in an Organized Health Care Education/Training Program; Visit Provider Student in an Organized Health Care Education/Training Program
DX: Z32.00 Encounter for pregnancy test, result unknown (principal)
CPT/HCPCS: 36415; 84702